=== PATIENT | female | born 1950 | race Caucasian/White ===

== ENCOUNTER 2017-10-23 21:34 | Emergency (ER) | payer OTHER ==
[2017-10-23 23:46] LABS: Absolute Lymphocytes (CBC) 3.4 K/uL (0.7-4.9); Absolute Monocytes 0.5 K/uL (0.1-1.3); Absolute Neutrophil 4.2 K/uL (1.8-8.0); Basophils % 0.7 % (0-1.3); Eosinophils % 3.6 % (0-4.4); Hematocrit 41.5 % (36.0-45.0); MCH 29.5 pg (27.0-35.0); MCV 89.5 fL (80-100); MPV 8.7 fL (7.6-11.3); Monocytes % 6.1 % (3.3-12.3); RBC Red Blood Cell Count 4.63 M/uL (3.86-4.86)
[2017-10-23] MEDS ORDERED: KETOROLAC 30 MG/ML INJ ONE (23:51)
--- NOTE | 2017-10-24 02:17 | EDPHYS ---
Physician Documentation [facility] Name: Leonela Schofield Age: 66 yrs Sex: Female : 1950 Arrival Date: 10/23/2017 Time: 21:36 Bed 16 Private MD: Dylan Quintero E ED Physician Mahesh Scruggs HPI: 10/23 23:56 This 66 yrs old Female presents to ER via Ambulatory with complaints of ps1 Shortness Of Breath, Blood Pressure Problem, chest heaviness. 23:56 patient states that she had high blood pressure and took an enalapril because she had a ps1 headache. She took her BP and it was elevated in which she generally does not have elevated BP since loosing a bunch of weight. She then took another when her BP was still elevated and rechecked and said that she bottomed out and BP was 60's systolic. She is 150's in the ED. Additionally states that she had intermittent chest tightness, no pressure and additionally has urinary frequncy. . Historical: - Allergies: 21:44 Tigan; aj - Home Meds: 21:44 cyclobenzaprine 10 mg Oral tab [Active]; hydrocodone-acetaminophen 7.5-500 mg oral tab aj [Active]; levothyroxine 150 mcg tab [Active]; Zoloft Oral [Active]; gabapentin oral oral [Active]; - PMHx: 21:44 Chronic pain; Hypothyroidism; Rheumatoid Arthritis; aj - PSHx: 21:44 None; aj - Immunization history:: Adult Immunizations up to date. - Social history:: Smoking status: Patient/guardian denies using tobacco. - Ebola Screening: : Patient negative for fever greater than or equal to 101.5 degrees Fahrenheit, and additional compatible Ebola Virus Disease symptoms Patient denies exposure to infectious person Patient denies travel to an Ebola-affected area in the 21 days before illness onset No symptoms or risks identified at this time. ROS: 23:56 Constitutional: Negative for fever, chills, and weight loss, Eyes: Negative for injury, ps1 pain, redness, and discharge, Cardiovascular: Negative for chest pain, palpitations, and edema. 23:56 Abdomen/GI: Negative for abdominal pain, nausea, vomiting, diarrhea, and constipation, MS/Extremity: Negative for injury and deformity, Skin: Negative for injury, rash, and discoloration, Neuro: Negative for headache, weakness, numbness, tingling, and seizure. 23:56 Respiratory: Positive for shortness of breath. 23:56 : Positive for urinary frequency. Exam: 23:56 Constitutional: This is a well developed, well nourished patient who is awake, alert, ps1 and in no acute distress. Head/Face: Normocephalic, atraumatic. Eyes: Pupils equal round and reactive to light, extra-ocular motions intact. Lids and lashes normal. Conjunctiva and sclera are non-icteric and not injected. Chest/axilla: Normal chest wall appearance and motion. Nontender with no deformity. No lesions are appreciated. Cardiovascular: Regular rate and rhythm. No gallops, murmurs, or rubs. Normal PMI, no JVD. No pulse deficits. Respiratory: Lungs have equal breath sounds bilaterally, clear to auscultation and percussion. No rales, rhonchi or wheezes noted. No increased work of breathing, no retractions or nasal flaring. Abdomen/GI: Soft, non-tender, with normal bowel sounds. No distension or tympany. No guarding or rebound. No evidence of tenderness throughout. Skin: Warm, dry with normal turgor. Normal color with no rashes, no lesions, and no evidence of cellulitis. MS/ Extremity: Pulses equal, no cyanosis. Neurovascular intact. Full, normal range of motion. Neuro: Awake and alert, GCS 15, oriented to person, place, time, and situation. Cranial nerves II-XII grossly intact. Sensory grossly intact. Psych: Awake, alert, with orientation to person, place and time. Behavior, mood, and affect are within normal limits. Vital Signs: 21:44 BP 132 / 63; Pulse 74; Resp 16; Temp 97.7; Pulse Ox 99% on R/A; Weight 87.54 kg; Height aj 5 ft. 8 in. (172.72 cm); 23:09 BP 153 / 75; Pulse 60; Resp 18; Pulse Ox 98% on R/A; tl2 10/24 00:21 BP 123 / 61; Pulse 57; Resp 19; Pulse Ox 98% on R/A; tl2 01:33 BP 117 / 60; Pulse 57; Resp 18; Pulse Ox 98% on R/A; tl2 10/23 21:44 Body Mass Index 29.35 (87.54 kg, 172.72 cm) aj MDM: 10/23 23:05 Patient medically screened. ps1 10/24 02:12 Data reviewed: vital signs, nurses notes, lab test result(s), EKG, radiologic studies. ps1 ED course: pt symptoms improved. On further conversation, patient states that she has been under a lot of stress lately with family issues. This may be due to anxiety. Will have patient follow up with Dr. Oneill tomorrow and have further diagnostic testing. . 10/23 23:14 Order name: BNP; Complete Time: 00:03 ps1 10/23 23:14 Order name: CBC with Diff; Complete Time: 23:50 ps1 10/23 23:14 Order name: Magnesium; Complete Time: 23:55 ps1 10/23 23:14 Order name: Troponin (emerg Dept Use Only); Complete Time: 00:03 ps1 10/23 23:14 Order name: D-Dimer; Complete Time: 23:50 ps1 10/24 01:54 Order name: Urine Dipstick--Ancillary (enter results); Complete Time: 02:38 rg2 10/23 23:14 Order name: XRAY Chest (1 view) ps1 10/23 23:14 Order name: EKG; Complete Time: 23:14 ps1 10/23 23:14 Order name: Cardiac monitoring; Complete Time: 23:20 ps1 10/23 23:14 Order name: EKG - Nurse/Tech; Complete Time: 23:20 ps1 10/23 23:14 Order name: IV Saline Lock; Complete Time: 23:20 ps1 10/23 23:14 Order name: Labs collected and sent; Complete Time: 23:20 ps1 10/23 23:14 Order name: O2 Per Protocol; Complete Time: 23:20 ps1 10/23 23:14 Order name: O2 Sat Monitoring; Complete Time: 23:20 ps1 10/23 23:14 Order name: Urine Dipstick-Ancillary (obtain specimen); Complete Time: 01:01 ps1 Administered Medications: 10/23 23:53 Drug: TORadol 30 mg Route: IVP; Site: right antecubital; tl2 10/24 00:30 Follow up: Response: No adverse reaction; Pain is decreased tl2 Disposition: 10/24/17 02:17 Discharged to Home. Impression: Hypertension, chest tightness, anxiety. - Condition is Stable. - Discharge Instructions: Nonspecific Chest Pain, [id number], Generalized Anxiety Disorder. - Medication Reconciliation Form, Thank You Letter, Antibiotic Education, Prescription Opioid Use form. - Follow up: Dylan Quintero MD; When: As needed; Reason: Recheck today's complaints, Continuance of care, Re-evaluation by your physician. Follow up: Maddison Oneill MD; When: Tomorrow; Reason: Further diagnostic work-up, Recheck today's complaints, Continuance of care, Re-evaluation by your physician. - Problem is an ongoing problem. - Symptoms have improved. Signatures: Dispatcher [employer] EDMS Justina Quan RN RN aj Luz Flanagan RN RN tl2 Mahesh Scruggs MD MD ps1 Corrections: (The following items were deleted from the chart) 02:40 02:17 10/24/2017 02:17 Discharged to Home. Impression: Hypertension; chest tightness; tl2 anxiety. Condition is Stable. Forms are Medication Reconciliation Form, Thank You Letter, Antibiotic Education, Prescription Opioid Use. Follow up: Dylan Quintero; When: As needed; Reason: Recheck today's complaints, Continuance of care, Re-evaluation by your physician. Follow up: Maddison Oneill; When: Tomorrow; Reason: Further diagnostic work-up, Recheck today's complaints, Continuance of care, Re-evaluation by your physician. Problem is an ongoing problem. Symptoms have improved. ps1
--- NOTE | 2017-10-24 02:17 | ER ---
Nurse's Notes [facility] Name: Leonela Schofield Age: 66 yrs Sex: Female : 1950 Arrival Date: 10/23/2017 Time: 21:36 Bed 16 Private MD: Dylan Quintero E Diagnosis: Hypertension;chest tightness;anxiety Presentation: 10/23 21:42 Presenting complaint: Patient states: SOB, urinary urgency and pressure, elevated blood aj pressure this morning. Transition of care: patient was not received from another setting of care. Onset of symptoms was October 23, 2017. Risk Assessment: Do you want to hurt yourself or someone else? Patient reports no desire to harm self or others. Care prior to arrival: None. 21:42 Method Of Arrival: Ambulatory aj 21:42 Acuity: MANUEL 3 aj 23:11 Initial Sepsis Screen: Does the patient meet any 2 criteria? No. Patient's initial tl2 sepsis screen is negative. Does the patient have a suspected source of infection? No. Patient's initial sepsis screen is negative. Triage Assessment: 21:44 General: Appears in no apparent distress. comfortable, Behavior is calm, cooperative, aj appropriate for age. Pain: Complains of pain in face. Neuro: Level of Consciousness is awake, alert, obeys commands, Oriented to person, place, time, situation, Appropriate for age Reports headache. Respiratory: Reports shortness of breath Airway is patent Respiratory effort is even, unlabored, Respiratory pattern is regular, symmetrical, Onset: The symptoms/episode began/occurred today, the patient has mild shortness of breath. : Reports urgency. Derm: Skin is intact, is healthy with good turgor, Skin is pink, warm \T\ dry. normal. Historical: - Allergies: 21:44 Tigan; aj - Home Meds: 21:44 cyclobenzaprine 10 mg Oral tab [Active]; hydrocodone-acetaminophen 7.5-500 mg oral tab aj [Active]; levothyroxine 150 mcg tab [Active]; Zoloft Oral [Active]; gabapentin oral oral [Active]; - PMHx: 21:44 Chronic pain; Hypothyroidism; Rheumatoid Arthritis; aj - PSHx: 21:44 None; aj - Immunization history:: Adult Immunizations up to date. - Social history:: Smoking status: Patient/guardian denies using tobacco. - Ebola Screening: : Patient negative for fever greater than or equal to 101.5 degrees Fahrenheit, and additional compatible Ebola Virus Disease symptoms Patient denies exposure to infectious person Patient denies travel to an Ebola-affected area in the 21 days before illness onset No symptoms or risks identified at this time. Screenin:09 Abuse screen: Denies threats or abuse. Nutritional screening: No deficits noted. tl2 Tuberculosis screening: No symptoms or risk factors identified. Fall Risk Gait- Impaired (20 pts.). Assessment: 23:09 General: Appears in no apparent distress. uncomfortable, Behavior is calm, cooperative, tl2 appropriate for age. Pain: Complains of pain in chest Pain does not radiate. Quality of pain is described as pressure. Neuro: Level of Consciousness is awake, alert, obeys commands, Oriented to person, place, time, situation. Cardiovascular: Rhythm is sinus bradycardia. Respiratory: Reports shortness of breath Airway is patent Respiratory effort is even, unlabored, Respiratory pattern is regular, symmetrical, Breath sounds are clear bilaterally. GI: No signs and/or symptoms were reported involving the gastrointestinal system. : No signs and/or symptoms were reported regarding the genitourinary system. Derm: Skin is pink, warm \T\ dry. 10/24 00:21 Reassessment: Patient appears in no apparent distress at this time. Patient and/or tl2 family updated on plan of care and expected duration. Pain level reassessed. Patient is alert, oriented x 3, equal unlabored respirations, skin warm/dry/pink. 01:30 Reassessment: Patient appears in no apparent distress at this time. Patient and/or tl2 family updated on plan of care and expected duration. Pain level reassessed. Patient is alert, oriented x 3, equal unlabored respirations, skin warm/dry/pink. 02:38 Reassessment: Patient appears in no apparent distress at this time. Patient and/or tl2 family updated on plan of care and expected duration. Pain level reassessed. Patient is alert, oriented x 3, equal unlabored respirations, skin warm/dry/pink. Pt verbalized understanding of discharge instructions, need for follow up. Vital Signs: 10/23 21:44 BP 132 / 63; Pulse 74; Resp 16; Temp 97.7; Pulse Ox 99% on R/A; Weight 87.54 kg; Height aj 5 ft. 8 in. (172.72 cm); 23:09 BP 153 / 75; Pulse 60; Resp 18; Pulse Ox 98% on R/A; tl2 10/24 00:21 BP 123 / 61; Pulse 57; Resp 19; Pulse Ox 98% on R/A; tl2 01:33 BP 117 / 60; Pulse 57; Resp 18; Pulse Ox 98% on R/A; tl2 10/23 21:44 Body Mass Index 29.35 (87.54 kg, 172.72 cm) aj ED Course: 10/23 21:36 Patient arrived in ED. am2 21:37 Dylan Quintero MD is Private Physician. am2 21:43 Triage completed. aj 21:44 Arm band placed on left wrist. Patient placed in waiting room, Patient notified of wait aj time. 22:59 Mahesh Scruggs MD is Attending Physician. ps1 23:09 Luz Flanagan, MARTHA is Primary Nurse. tl2 23:09 Patient has correct armband on for positive identification. Placed in gown. Bed in low tl2 position. Call light in reach. Side rails up X 1. Adult w/ patient. 23:09 Inserted saline lock: 20 gauge in right antecubital area, using aseptic technique. tl2 Blood collected. 23:41 X-ray completed. Portable x-ray completed in exam room. Patient tolerated procedure kw well. 23:44 XRAY Chest (1 view) In Process Unspecified. EDMS 10/24 02:16 Dylan Quintero MD is Referral Physician. ps1 02:16 Maddison Oneill MD is Referral Physician. ps1 02:38 No provider procedures requiring assistance completed. IV discontinued, intact, tl2 bleeding controlled, No redness/swelling at site. Pressure dressing applied. Administered Medications: 10/23 23:53 Drug: TORadol 30 mg Route: IVP; Site: right antecubital; tl2 10/24 00:30 Follow up: Response: No adverse reaction; Pain is decreased tl2 Outcome: 02:17 Discharge ordered by . ps1 02:38 Discharged to home ambulatory, with family. tl2 02:38 Condition: stable 02:38 Discharge instructions given to patient, Instructed on discharge instructions, follow up and referral plans. Demonstrated understanding of instructions, follow-up care. 02:40 Patient left the ED. tl2 Signatures: Dispatcher [employer] Justina Rascon RN RN aj Whitley, Kimberlee kw Knox, Taylor, RN RN tl2 Justina Villalba am2 Mahesh Scruggs MD MD ps1
[2017-10-24 02:38] LABS: Urine Blood NEGATIVE (NEG); Urine Glucose NEGATIVE (NEG); Urine Protein NEGATIVE (NEG); Urine Specific Gravity <1.005 (1.005-1.030); Urine pH 5.5 (5.0-7.0)
--- NOTE | 2017-10-24 07:39 | EKG ---
Test Date: 2017-10-23 Test Time: 23:20:48 Finished Stock Inspector: THERESA MEASUREMENT RESULTS: Intervals: Rate: 54 NH: 172 QRSD: 108 QT: 450 QTc: 426 [place]: P: 67 NH: 172 QRS: -4 T: 36 INTERPRETIVE STATEMENTS: Sinus bradycardia Otherwise normal ECG Compared to ECG 01/15/2002 16:11:00 Sinus rhythm no longer present T-wave abnormality no longer present Prolonged QT interval no longer present Electronically Signed On 10-24-17 07:38:06 CDT by Donn Fritz
--- NOTE | 2017-10-24 07:48 | RAD REPORT ---
EXAM DESCRIPTION: [facility] Single View10/23/2017 11:44 pm CLINICAL HISTORY: sob COMPARISON: none FINDINGS: The lungs appear clear of acute infiltrate. The heart is normal size IMPRESSION: No acute abnormalities displayed
== END 2017-10-24 02:40 | disposition home or self-care (01) ==
LOC: ER 21:34
DX: I10 Essential (primary) hypertension (principal); R07.89 Other chest pain; F41.9 Anxiety disorder, unspecified; E03.9 Hypothyroidism, unspecified; M06.9 Rheumatoid arthritis, unspecified
CPT/HCPCS: 36415; 71045; 81003; 83735; 83880; 84484; 85025; 85379; 93005; 96374; 99284

== ENCOUNTER 2022-09-23 15:34 | Inpatient (IN) | payer OTHER ==
[2022-09-23] MEDS ORDERED: ACETAMINOPHEN 500 MG TAB PO PRN (16:11)
[2022-09-23] MEDS ORDERED: ONDANSETRON 4 MG/2 ML VIAL IV PRN (16:11)
[2022-09-23] MEDS ORDERED: Levofloxacin 750mg IV 750 MG/150 ML BAG IV SCH (17:00)
[2022-09-23 17:17] VITALS: BMI 30.9
--- NOTE | 2022-09-23 17:24 | RAD REPORT ---
EXAM DESCRIPTION: CT - Chest For Pe Angio - 09/23/2022 4:48 pm CLINICAL HISTORY: sob COMPARISON: Chest Pa And Lat (2 Views) dated 08/23/2018 TECHNIQUE: Thin axial CT images of the chest were obtained following administration of 95 mL Isovue 370 IV contrast. Multiplanar reconstructions, and maximum intensity projection reconstructions were g enerated and reviewed. Exam utilizes a protocol for optimal evaluation of pulmonary arterial tree. All CT scans are performed using dose optimization technique as appropriate and may include automated exposure control or mA/KV adjustment according to patient size. FINDINGS: Pulmonary arteries are normal. No emboli or other suspicious finding. No acute or signific ant aorta findings. No suspicious mass in the lung parenchyma. Segmental left medial lower lobe airspace opacities with s ome volume loss, most suggestive of atelectasis. No pleural thickening or pleural effusion. No pneumo thorax. No abnormal mediastinal or hilar masses or lymphadenopathy seen. No chest wall mass or abnormal axill iary lymphadenopathy. Small hiatal hernia. Central intrahepatic biliary ductal dilation, could be related to post cholecystectomy status. IMPRESSION: No evidence of acute central pulmonary emboli. The medial left lower lobe airspace opacity, suggestive of atelectasis. Early or resolving pneumonia is possible. .
[2022-09-23] MEDS: METHYLPREDNISOLONE 125 MG INJ IV SCH ×2 (17:58→23:59)
[2022-09-23] MEDS: ALBUTEROL 2.5 MG/3 ML NEB SOL NEB SCH (19:40)
[2022-09-23] MEDS: IPRATROPIUM BROM 0.5MG/2.5ML NEB SCH (20:00)
[2022-09-24] MEDS ORDERED: CYCLOBENZAPRINE 10 MG TAB PO PRN (00:12)
[2022-09-24] MEDS ORDERED: GABAPENTIN 300 MG CAP PO PRN (00:12)
[2022-09-24] MEDS ORDERED: TRAMADOL HCL 50 MG TAB PO PRN (00:12)
[2022-09-24] MEDS: ALBUTEROL 2.5 MG/3 ML NEB SOL NEB SCH ×3 (01:45→15:09)
[2022-09-24] MEDS: IPRATROPIUM BROM 0.5MG/2.5ML NEB SCH ×4 (02:00→19:25)
[2022-09-24 03:27] LABS: Absolute Lymphocytes (CBC) 0.7 K/uL (0.7-4.9); Hematocrit 35.3 % (36.0-45.0); Lymphocytes % 9.8 % (15.3-44.8); MCV 87.4 fL (80-100); MPV 8.2 fL (7.6-11.3); RBC Red Blood Cell Count 4.04 M/uL (3.86-4.86)
[2022-09-24 03:48] LABS: Albumin 3.1 g/dL (3.4-5.0); Bilirubin Total 0.2 mg/dL (0.2-1.0); Magnesium 2.2 mg/dL (1.6-2.4); Potassium 2.7 mEq/L (3.5-5.1); Protein, Total 6.8 g/dL (6.4-8.2); Troponin High Sensitivity 8.1 pg/mL (<58.9)
[2022-09-24 04:46] LABS: Blood Morphology Comment NOT SEEN (NOT SEEN); Platelet Estimate ADEQ
[2022-09-24] MEDS ORDERED: POTASSIUM 25 MEQ EFFERV TAB PO ONE (05:39)
[2022-09-24] MEDS: METHYLPREDNISOLONE 125 MG INJ IV SCH (05:52)
[2022-09-24] MEDS ORDERED: NA CHLORIDE 0.9% 250 ML ONE (05:55)
--- NOTE | 2022-09-24 05:59 | P.HP ---
Certification for Inpatient Patient admitted to: Inpatient With expected LOS: >2 Midnights Patient will require the following post-hospital care: None Practitioner: I am a practitioner with admitting privileges, knowledge of patient current condition, hospital course, and medical plan of care. Services: Services provided to patient in accordance with Admission requirements found in Title 42 Section 412.3 of the Code of Federal Regulations Patient History Date of Service: 09/23/22 Reason for admission: Shortness of breath History of Present Illness: Patient is a 74-year-old female who comes in from the local stand-alone ER with complaints of shortness of breath. She has some vague chest discomfort as well. Concerned she may have a pulmonary embolism so she was sent to the emergency room for further evaluation. She follows up with Dr. Diez pulmonary in [place]. She states that she was told she has dyspnea but she does not know the etiology.She had a chest x-ray with no significant abnormality. We excepted her from the office emergency room to do an CAT scan. CT is unremarkable. Patient will be admitted for further treatment and work-up of her shortness of breath. We will get pulmonary Dr. Villafuerte to see the patient as well. Allergies trimethobenzamide [From Tigan] Allergy (Verified 09/23/22 21:16) Anaphylaxis Home Medications: Albuterol Sulfate [Albuterol Sulfate 0.083% Neb Soln] 1 dose IN PRN PRN 09/23/22 Amlodipine [Norvasc*] 1 tab PO DAILY 09/23/22 Cyclobenzaprine [Flexeril*] 5 tab PO PRN PRN 09/23/22 Furosemide [Lasix*] 1 tab PO DAILY 09/23/22 Gabapentin 1 tab PO BEDTIME 09/23/22 Hydrocodone 10/APAP 325 [[place] 10/325*] 1 tab PO Q6HR PRN 09/23/22 Levothyroxine Sodium [Levothyroxine] 1 tab PO DAILY 09/23/22 Montelukast [Singulair*] 1 tab PO BEDTIME 09/23/22 Tramadol HCl [Ultram] 1 tab PO BEDTIME 09/23/22 Venlafaxine HCl [Effexor] 150 mg PO DAILY 09/23/22 - Past Medical/Surgical History Has patient received pneumonia vaccine in the past: Yes -: Dyspnea Past Surgical History: Patient denies surgical history - Family History Father Family History: Reviewed- Non-Contributory - Social History Smoking Status: Never smoker Alcohol use: No CD- Drugs: No Caffeine use: Yes Place of Residence: Home Review of Systems 10-point ROS is otherwise unremarkable Physical Examination - Vital Signs Temperature: 97.2 F Blood Pressure: 126/58 Pulse: 82 Respirations: 16 Pulse Ox (%): 92 - Physical Exam General: Alert, In no apparent distress, Oriented x3 HEENT: Atraumatic, PERRLA, Mucous membr. moist/pink, EOMI, Sclerae nonicteric Neck: Supple, 2+ carotid pulse no bruit, No LAD, Without JVD or thyroid abnormality Respiratory: Diminished, Expiratory wheezes Cardiovascular: Regular rate/rhythm, Normal S1 S2, No murmurs Gastrointestinal: Normal bowel sounds, Soft and benign, Non-distended, No tenderness Musculoskeletal: No clubbing, No swelling, No tenderness Integumentary: No rashes Neurological: Normal gait, Normal speech, Normal strength at 5/5 x4 extr, Normal tone, Sensation intact, Cranial nerves 3-12 intact, Normal affect Lymphatics: No axilla or inguinal lymphadenopathy - Studies Laboratory Data (last 24 hrs) 09/24/22 02:54: Sodium 135 L, Potassium 2.7 L, BUN 17, Creatinine 0.88, Glucose 166 H, Magnesium 2.2, Total Bilirubin 0.2, AST 17, ALT 19, Alkaline Phosphatase 70, Triglycerides 69, Cholesterol 145, HDL Cholesterol 76 H, Cholesterol/HDL Ratio 1.91 09/24/22 02:54: WBC 7.20, Hgb 11.8 L, Hct 35.3 L, Plt Count 145 L Assessment & Plan - Problems (Diagnosis) (1) Dyspnea Current Visit: Yes Status: Acute (2) COPD (chronic obstructive pulmonary disease) with acute bronchitis Current Visit: Yes Status: Acute - Plan -nebs, steroids, and antibiotics -O2 per protocol. -outpatient spirometry or pulmonary function testing -repeat chest x-ray -pulmonary consultation Discharge Plan: Home Plan to discharge in: Greater than 2 days - Advance Directives Does patient have a Living Will: No Does patient have a Durable POA for Healthcare: No - Code Status/Comfort Care Code Status Assessed: Yes Code Status: Full Code Critical Care: No Time Spent Managing PTS Care (In Minutes): 45
[2022-09-24] MEDS ORDERED: KCL 20 MEQ/100 mL IVPB 20 MEQ/100 ML BAG IV SCH (06:00)
[2022-09-24] MEDS: AMLODIPINE 5 MG TAB PO SCH (09:03)
[2022-09-24] MEDS: LEVOTHYROXINE SOD 0.075 MG TAB PO SCH (09:03)
[2022-09-24] MEDS: ENOXAPARIN 40 MG/0.4 ML SQ SCH (09:04)
[2022-09-24] MEDS: HYDROCODONE/APAP 10/325 TAB PO PRN ×2 (09:08→18:13)
--- NOTE | 2022-09-24 10:20 | P.CNS ---
Date of Consult: 09/24/22 Reason for Consult: Shortness of breath Chief Complaint: Shortness of breath History of Present Illness: Patient is 71 years of age with history of chronic dyspnea she was seen by investment director Dr. 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 with wheezing denies any fever or chills she uses albuterol at home only Allergies trimethobenzamide [From Tigan] Allergy (Verified 09/23/22 21:16) Anaphylaxis Home Medications: Albuterol Sulfate [Albuterol Sulfate 0.083% Neb Soln] 1 dose IN PRN PRN 09/23/22 Amlodipine [Norvasc*] 1 tab PO DAILY 09/23/22 Cyclobenzaprine [Flexeril*] 5 tab PO PRN PRN 09/23/22 Furosemide [Lasix*] 1 tab PO DAILY 09/23/22 Gabapentin 1 tab PO BEDTIME 09/23/22 Hydrocodone 10/APAP 325 [[place] 10/325*] 1 tab PO Q6HR PRN 09/23/22 Levothyroxine Sodium [Levothyroxine] 1 tab PO DAILY 09/23/22 Montelukast [Singulair*] 1 tab PO BEDTIME 09/23/22 Tramadol HCl [Ultram] 1 tab PO BEDTIME 09/23/22 Venlafaxine HCl [Effexor] 150 mg PO DAILY 09/23/22 - Past Medical/Surgical History -: Dyspnea -: Hypertension -: Chronic pain seeing a pain specialist - Family History Father Family History: Reviewed- Non-Contributory - Social History Alcohol use: No CD- Drugs: No Caffeine use: Yes Place of Residence: Home Review of Systems 10-point ROS is otherwise unremarkable Physical Examination Temp Pulse Resp BP Pulse Ox 97.5 F 81 18 125/65 97 09/24/22 08:00 09/24/22 08:00 09/24/22 08:00 09/24/22 08:00 09/24/22 08:00 General: Alert, Oriented x3 HEENT: Atraumatic Neck: Supple Respiratory: Clear to auscultation bilaterally Cardiovascular: No edema, Regular rate/rhythm, Normal S1 S2 Gastrointestinal: Normal bowel sounds, Soft and benign Laboratory Data (last 24 hrs) 09/24/22 02:54: Sodium 135 L, Potassium 2.7 L, BUN 17, Creatinine 0.88, Glucose 166 H, Magnesium 2.2, Total Bilirubin 0.2, AST 17, ALT 19, Alkaline Phosphatase 70, Triglycerides 69, Cholesterol 145, HDL Cholesterol 76 H, Cholesterol/HDL Ratio 1.91 09/24/22 02:54: WBC 7.20, Hgb 11.8 L, Hct 35.3 L, Plt Count 145 L - Problems (1) Dyspnea Current Visit: Yes Status: Acute Plan: Patient is 71 years of age admitted with acute on chronic dyspnea she has had been short of breath for the past 3 to 4 years was evaluated by investment director with a diagnosis of dyspnea suspect that she may have underlying asthma her aunt is also has asthma patient is never smoked uses albuterol at home I recommend adding p.o. prednisone inhaled steroid CT scan shows left basilar atelectasis vital signs are stable patient is hypokalemic suspect is from the Lasix vital signs stable oxygenation satisfactory discharge home on prednisone 10 mg twice a day for a week in addition to Dulera continues to use albuterol as needed follow-up with me in 2 weeks Qualifiers: Dyspnea type: dyspnea on exertion Qualified Code(s): R06.09 - Other forms of dyspnea
[2022-09-24] MEDS: DULERA 200/5 (MOMETASONE/FORMOTEROL) INHALER IH SCH ×2 (11:00→21:00)
[2022-09-24] MEDS: VENLAFAXINE HCL XR 75 MG CAP PO SCH (13:45)
[2022-09-24] MEDS: LEVALBUTEROL 1.25 MG/3 ML NEB NEB SCH (19:25)
[2022-09-24] MEDS ORDERED: MONTELUKAST 5 MG CHEWABLE TAB PO SCH (21:00)
[2022-09-24] MEDS: GABAPENTIN 300 MG CAP PO SCH (21:21)
[2022-09-24] MEDS: predniSONE 20 MG TAB PO SCH (21:22)
[2022-09-24] MEDS: MONTELUKAST 10 MG TAB PO SCH (21:22)
[2022-09-25] MEDS: LEVALBUTEROL 1.25 MG/3 ML NEB NEB SCH ×4 (01:15→19:25)
[2022-09-25] MEDS: IPRATROPIUM BROM 0.5MG/2.5ML NEB SCH ×4 (02:00→19:25)
[2022-09-25] MEDS: AMOX/K CLAV 875 MG TAB PO SCH ×2 (08:57→20:22)
[2022-09-25] MEDS: AMLODIPINE 5 MG TAB PO SCH (08:57)
[2022-09-25] MEDS: VENLAFAXINE HCL XR 75 MG CAP PO SCH (08:57)
[2022-09-25] MEDS: ENOXAPARIN 40 MG/0.4 ML SQ SCH (08:57)
[2022-09-25] MEDS: BENZONATATE 100 MG CAP PO PRN (08:57)
[2022-09-25] MEDS: LEVOTHYROXINE SOD 0.075 MG TAB PO SCH (08:57)
[2022-09-25] MEDS: DULERA 200/5 (MOMETASONE/FORMOTEROL) INHALER IH SCH ×2 (08:58→20:22)
[2022-09-25] MEDS: predniSONE 20 MG TAB PO SCH ×2 (08:58→20:22)
[2022-09-25] MEDS: GABAPENTIN 300 MG CAP PO SCH ×2 (08:58→20:22)
[2022-09-25] MEDS: HYDROCODONE/APAP 10/325 TAB PO PRN ×3 (09:02→22:35)
--- NOTE | 2022-09-25 09:06 | RAD REPORT ---
EXAM DESCRIPTION: US - Extrem Venous W Compress Willy - 09/25/2022 8:59 am CLINICAL HISTORY: elevated ddimer at OSH Bilateral leg edema and swelling. COMPARISON: Extremity Venous Uni Ltd dated 12/03/2016 TECHNIQUE: Real-time sonographic interrogation of the left and right lower extremity deep venous sys tems was performed. FINDINGS: Normal compressibility, flow augmentation, phasic flow and spontaneous flow is identified in both the left and right lower extremity deep venous systems. IMPRESSION: No sonographic evidence of left or right lower extremity deep venous thrombosis.
--- NOTE | 2022-09-25 10:20 | RAD REPORT ---
EXAM DESCRIPTION: RAD - Chest Single View - 09/25/2022 10:12 am CLINICAL HISTORY: follow-up Chest pain. COMPARISON: Chest Pa And Lat (2 Views) dated 08/23/2018; Chest Single View dated 10/23/2017; Chest For P e Angio dated 09/23/2022 FINDINGS: Portable technique limits examination quality. The lungs are emphysematous but grossly clear. The heart is normal in size. No displaced fractures. IMPRESSION: COPD without acute process seen.
--- NOTE | 2022-09-25 11:52 | P.PN ---
Subjective Date of Service: 09/25/22 Chief Complaint: Shortness of breath Patient was improving complaining of more cough and congestion short of breath Review of Systems General: Weakness Respiratory: Cough, Shortness of Breath Physical Examination - Vital Signs Temperature: 97.4 F Blood Pressure: 135/64 Pulse: 69 Respirations: 95 Pulse Ox (%): 80 - Physical Exam General: Alert, Oriented x3 Respiratory: Expiratory wheezes Cardiovascular: No edema, Regular rate/rhythm Assessment And Plan - Current Problems (Diagnosis) (1) Dyspnea Current Visit: Yes Status: Acute Plan: Presumed asthma exacerbation patient was positive for strep throat Augmentin has been added formally was on levofloxacin have also added Zithromax for her COPD/asthma presumed exacerbation labs reviewed procalcitonin level is negative possible discharge a.m. Qualifiers: Dyspnea type: dyspnea on exertion Qualified Code(s): R06.09 - Other forms of dyspnea
[2022-09-25] MEDS: AZITHROMYCIN 250 MG TAB PO SCH (12:03)
--- NOTE | 2022-09-25 16:02 | P.PN ---
Subjective Date of Service: 09/25/22 Chief Complaint: Shortness of breath No acute events overnight. Her shortness of breath and sore throat are persistent. She feels like her symptoms are unchanged compared to yesterday. She denies any chest pain or palpitations. Review of Systems 10-point ROS is otherwise unremarkable ENT: Throat Pain Respiratory: Cough, Shortness of Breath Physical Examination - Vital Signs Temperature: 97.9 F Blood Pressure: 135/67 Pulse: 85 Respirations: 18 Pulse Ox (%): 93 - Physical Exam General: Alert, In no apparent distress, Oriented x3 HEENT: Atraumatic, Mucous membr. moist/pink, Other (Mildmoderate posterior oropharyngeal erythema), Sclerae nonicteric Neck: JVD not distended Respiratory: Diminished, Expiratory wheezes (end-expiratory) Cardiovascular: No edema, Regular rate/rhythm, Normal S1 S2, No gallops, No rubs, No murmurs Gastrointestinal: Normal bowel sounds, Soft and benign, Non-distended, No tenderness, No rebound, No guarding Musculoskeletal: No clubbing Integumentary: No rashes Neurological: Normal speech, Normal affect Assessment And Plan - Plan # Acute Chronic Obstructive Pulmonary Disease Exacerbation - Evaluation thus far: - Physical exam = end expiratory wheezing throughout - Chest x-ray = "COPD without acute process seen." - Management plan: - Pulmonology consulted and spoke with Dr. Mcadams - recommendations appreciated - Bronchodilators and steroids per Pulm - Ordered PRN benzonatate, guaifenesin - Continue home montelukast - Consulted Respiratory Therapy - Supplemental oxygen to maintain SpO2 > 92% - Assess inhaler technique one improved from COPD exacerbation - Encouraged incentive spirometry # Group A Streptococcus Pharyngitis - Strep test was positive at [facility] prior to transfer - Started on amoxicillin-clavulanate # Elevated D-Dimer - D-Dimer = 936 (at [facility] prior to transfer) - CT chest angiogram = "no evidence of acute central pulmonary emboli. The medial left lower lobe airspace opacity, suggestive of atelectasis. Early or resolving pneumonia is possible." - Bilateral lower extremity Doppler = "no sonographic evidence of left or right lower extremity deep venous thrombosis." # Hypertension - Continue home amlodipine # Hypothyroidism - Continue home levothyroxine # Depressive Disorder - Continue home venlafaxine Myles Bryant M.D.
[2022-09-25] MEDS ORDERED: guaiFENesin 100 MG/5 ML UCUP PO PRN (16:29)
[2022-09-25] MEDS: MONTELUKAST 10 MG TAB PO SCH (22:12)
[2022-09-26] MEDS: IPRATROPIUM BROM 0.5MG/2.5ML NEB SCH ×2 (01:25→07:43)
[2022-09-26] MEDS: LEVALBUTEROL 1.25 MG/3 ML NEB NEB SCH ×2 (01:25→07:43)
[2022-09-26 04:05] LABS: Potassium 4.2 mEq/L (3.5-5.1)
[2022-09-26 08:11] VITALS: O2SAT 100
--- NOTE | 2022-09-26 08:18 | P.DS ---
Admission Date: 09/23/22 Discharge Date: 09/26/22 Disposition: ROUTINE DISCHARGE Discharge Condition: GOOD Reason for Admission: Shortness of breath Consultations: 1. Pulmonology Hospital Course: DIAGNOSES: # Acute Chronic Obstructive Pulmonary Disease Exacerbation # Group A Streptococcus Pharyngitis # Elevated D-Dimer # Hypertension # Hypothyroidism # Depressive Disorder HOSPITAL COURSE: Ms. Leonela Schofield is a pleasant 71 year old female with a past medical history significant for chronic obstructive pulmonary disease, hypertension, hypothyroidism, and depressive disorder who was admitted to the [facility] on 09/23/2022 for shortness of breath. She was admitted to the Medicine service. Upon further evaluation, she was found to have an acute COPD exacerbation. Her chest x-ray revealed, ""COPD without acute process seen." Review of her outside records from [facility] indicated that she had d-dimer of 936 and a positive Group A Strep test. Her CT chest angiogram revealed, ""no evidence of acute central pulmonary emboli. The medial left lower lobe airspace opacity, suggestive of atelectasis. Early or resolving pneumonia is possible." Her procalcitonin returned at less than 0.05, which suggests against bacterial pneumonia. Her bilateral lower extremity Doppler revealed, "no sonographic evidence of left or right lower extremity deep venous thrombosis." Pulmonology was consulted and she was evaluated by Dr. Mcadams. She was treated with bronchodilators, steroids, and antibiotics. Over the course of her hospitalization, her symptoms improved significantly. This morning, she stated that she felt significantly better and would like to be discharged home. On 09/26/2022, she was seen on morning rounds and deemed medically stable for discharge. She was discharged with instructions to schedule follow-up appointments with her PCP (Dr. Quintero) and with Pulmonology (Dr. Mcadams). She was provided prescriptions for amoxicillin-clavulanate, prednisone, albuterol, and benzonatate. She was given the opportunity to ask questions and reported no further questions. Furthermore, all questions were answered to the best of my ability. A copy of this discharge summary will be sent to the above providers to facilitate continuity of care. Today, I personally spent 25 minutes on her case, of which greater than 50% of the time was spent in patient education, counseling, and coordination of care as described above. - Physical Exam General: Alert, In no apparent distress, Oriented x3 HEENT: Atraumatic, Mucous membr. moist/pink, Other (Minimal posterior oropharyngeal erythema), Sclerae nonicteric Neck: JVD not distended Respiratory: Diminished, Clear to ausculation bilaterally, without wheezes, rhonchi, or rales Cardiovascular: No edema, Regular rate/rhythm, No murmurs Gastrointestinal: Normal bowel sounds, Soft, Non-distended, No tenderness Musculoskeletal: No clubbing Integumentary: No rashes Neurological: Normal speech, Normal affect Vital Signs/Physical Exam: Temp Pulse Resp BP Pulse Ox 97.0 F 71 18 131/61 96 09/26/22 04:00 09/26/22 04:00 09/26/22 04:00 09/26/22 04:00 09/26/22 04:00 Laboratory Data at Discharge: WBC 7.20 thou/uL (4.3-10.9) 09/24/22 02:54 Hgb 11.8 g/dL (12.0-15.0) L 09/24/22 02:54 Hct 35.3 % (36.0-45.0) L 09/24/22 02:54 Plt Count 145 thou/uL (152-406) L 09/24/22 02:54 Sodium 136 mEq/L (136-145) 09/26/22 03:17 Potassium 4.2 mEq/L (3.5-5.1) 09/26/22 03:17 BUN 22 mg/dL (7-18) H 09/26/22 03:17 Creatinine 0.71 mg/dL (0.55-1.02) 09/26/22 03:17 Glucose 167 mg/dL (74-106) H 09/26/22 03:17 Magnesium 2.2 mg/dL (1.6-2.4) 09/24/22 02:54 Total Bilirubin 0.2 mg/dL (0.2-1.0) 09/24/22 02:54 AST 17 U/L (15-37) 09/24/22 02:54 ALT 19 U/L (13-56) 09/24/22 02:54 Alkaline Phosphatase 70 U/L (45-117) 09/24/22 02:54 Triglycerides 69 mg/dL (<150) 09/24/22 02:54 Cholesterol 145 mg/dL (<200) 09/24/22 02:54 HDL Cholesterol 76 mg/dL (40-60) H 09/24/22 02:54 Cholesterol/HDL Ratio 1.91 09/24/22 02:54 Home Medications: Albuterol Sulfate [Albuterol Sulfate 0.083% Neb Soln] 1 dose IN PRN PRN 09/23/22 Amlodipine [Norvasc*] 1 tab PO DAILY 09/23/22 Cyclobenzaprine [Flexeril*] 5 tab PO PRN PRN 09/23/22 Furosemide [Lasix*] 1 tab PO DAILY 09/23/22 Gabapentin 1 tab PO BID 09/23/22 Hydrocodone 10/APAP 325 [[place] 10/325*] 1 tab PO Q6HR PRN 09/23/22 Levothyroxine Sodium [Levothyroxine] 1 tab PO DAILY 09/23/22 Tramadol HCl [Ultram] 1 tab PO BEDTIME 09/23/22 Meloxicam 15 mg PO DAILY 09/24/22 Montelukast Sodium [Singulair] 10 mg PO DAILY 09/24/22 Venlafaxine HCl *Xr* [Effexor XR] 150 mg PO DAILY 09/24/22 Albuterol Sulfate [Albuterol Sulfate Hfa] 2 puff IH Q6H PRN #1 inhaler 09/26/22 Amox/Clavulanate [Augmentin 875-125 Tab*] 875 mg PO BID 7 Days #14 tab 09/26/22 Benzonatate [Tessalon Perle*] 100 mg PO TID PRN 7 Days #20 cap 09/26/22 predniSONE [Prednisone*] 20 mg PO BID 5 Days #10 tab 09/26/22 New Medications: Albuterol Sulfate [Albuterol Sulfate Hfa] 2 puff IH Q6H PRN #1 inhaler PRN Reason: Shortness Of Breath Amox/Clavulanate [Augmentin 875-125 Tab*] 875 mg PO BID 7 Days #14 tab predniSONE [Prednisone*] 20 mg PO BID 5 Days #10 tab Benzonatate [Tessalon Perle*] 100 mg PO TID PRN 7 Days #20 cap PRN Reason: Cough Physician Discharge Instructions: 1. Please call and schedule a follow-up appointment with your PCP (Dr. Quintero) in 3-5 days 2. Please call and schedule a follow-up appointment with Pulmonology (Dr. Mcadams) in 5-7 days Diet: AHA Activity: Ad jennifer Followup: Duglas Mcadams MD [ACTIVE - CAN ADMIT] - 1 Week Dylan Quintero MD [ACTIVE - CAN ADMIT] - 2-3 Days Time spent managing pt's care (in minutes): 25
[2022-09-26 08:45] VITALS: BP 123/64; TEMP 96.8
[2022-09-26] MEDS: DULERA 200/5 (MOMETASONE/FORMOTEROL) INHALER IH SCH (09:00)
[2022-09-26] MEDS: VENLAFAXINE HCL XR 75 MG CAP PO SCH (09:16)
[2022-09-26] MEDS: GABAPENTIN 300 MG CAP PO SCH (09:16)
[2022-09-26] MEDS: LEVOTHYROXINE SOD 0.075 MG TAB PO SCH (09:16)
[2022-09-26] MEDS: AMLODIPINE 5 MG TAB PO SCH (09:16)
[2022-09-26] MEDS: AZITHROMYCIN 250 MG TAB PO SCH (09:16)
[2022-09-26] MEDS: predniSONE 20 MG TAB PO SCH (09:16)
[2022-09-26] MEDS: ENOXAPARIN 40 MG/0.4 ML SQ SCH (09:17)
[2022-09-26] MEDS: AMOX/K CLAV 875 MG TAB PO SCH (09:17)
[2022-09-26] MEDS: HYDROCODONE/APAP 10/325 TAB PO PRN (09:22)
[2022-09-26] MEDS: BENZONATATE 100 MG CAP PO PRN (09:45)
== END 2022-09-26 10:55 | disposition home or self-care (01) | DRG 190 ==
LOC: 2ND 15:43 → OBSVTOIN 15:43
PROVIDERS: ADMIT Hospitalist; ATTEND Internal Medicine
PROC: 5A09357 Assistance with Respiratory Ventilation, Less than 24 Consecutive Hours, Continuous Positive Airway Pressure (ICD-10-PCS; principal; 2022-09-23)
DX: J44.1 Chronic obstructive pulmonary disease with (acute) exacerbation (principal); J15.4 Pneumonia due to other streptococci; J44.0 Chronic obstructive pulmonary disease with (acute) lower respiratory infection; E03.9 Hypothyroidism, unspecified; F32.A Depression, unspecified; Z88.8 Allergy status to other drugs, medicaments and biological substances; Z79.52 Long term (current) use of systemic steroids; Z79.899 Other long term (current) drug therapy; Z79.890 Hormone replacement therapy
CPT/HCPCS: 36415; 71045; 71275; 80048; 80053; 80061; 83735; 83880; 84132; 84145; 84484; 85025; 93970; 94760; J1650; J2405; J2930; J3480; J3535; J7050; J7512; J7613; J7614; J7644; Q9967

== ENCOUNTER 2024-01-13 14:04 | Emergency (ER) | payer OTHER ==
--- OUTSIDE RECORDS SUMMARY | 2024-01-13 14:07 | XMS REPORT | Continuity of Care Document ---
Author Name Unknown Address [address] [place] [address] [facility] thconnect Address [address] [place] [address] Care Team Providers Care Welding Machine Setter Name Role Phone Dylan Quintero Primary Care Physician [phone] Michael Arias Attending Clinician [phone] AWA MUNGUIA Attending Clinician UnavailAWA Fields Attending Clinician UnavailJoo Guadalupe DO Attending Clinician [phone] GIORGIO JAMISON Attending Clinician Unavailable Giorgio Stovall Attending Clinician [phone] Doctor Unassigned, [place] Attending Clinician U navailable Radiology Attending Clinician Unavailable RADIOLOGY Attending Clinician Unavailable TIANA GUERRERO Attending Clinician Unavailable TIANA GUERRERO Attending Clinician Unavailable Pob, [facility] Lab Main Attending Clinician UnavailKatya Eubanks Attending Clinician Giovany Denney MD Attending Clinician [phone] GIOVANY DENNEY Attending Clinician Unavailable Awa Munguia MD Attending Clinician [phone] [facility], [facility] Heart Attending Clinician Unavailab le Class, [facility] Pre Op Attending Clinician Unabrandyn cooney 1, [facility] Attending Clinician Unavailable Weston ROA, Puneet Dow Attending Clinician [phone] Tiana Guerrero DO Attending Clinician [phone] [facility], [facility] Cardio Fac Attending Clinician Unavail able 1, Adc Cardio Fac Room Attending Clinician Unankechi ilable Payers Payer Name Policy Type Policy Number Effective Date Expirati on Date Source Problems Condition Name Condition Details Condition Category Status Onset Date Resolution Date Last Treatment Date Treating Clinician Comments Source Primary osteoarthr itis of left knee Primary osteoarthr itis of left knee Disease Active 2018-05 0-14 00:00: 00 Overview: Formattin g of this note might be different from the original. Added automatic ally from request for surgery [id number] [facility] Total knee replacemen t status Total knee replacemen t status Disease Active 02-10 00:00: 00 [facility] Primary osteoarthr itis of right knee Primary osteoarthr itis of right knee Disease Active 01-24 00:00: 00 Overview: Formattin g of this note might be different from the original. Added automatic ally from request for surgery [id number] [facility] Allergies, Adverse Reactions, Alerts Allergy Name Allergy Type Status Severity Reaction(s) Onset Date Inactive Date Treating Clinician Comments Source Codeine Propensi ty to adverse reaction s Active Nausea and/or Vomiting 01-29 00:00: 00 [facility] CODEINE DRUG INGREDI Active N/V 01-29 00:00: 00 [facility] Trimetho benzamid e Hcl Propensi ty to adverse reaction s Active Anaphylaxis 10-04 00:00: 00 [facility] TRIMETHO BENZAMID E HCL DRUG INGREDI Active Anaphylaxis 17 00:00: 00 [facility] Social History Social Habit Start Date Stop Date Quantity Comments Source History SDOH Alcohol Std Drinks [facility] History SDOH Alcohol Binge [facility] Exposure to SARS-CoV-2 (event) Not sure [facility] 2020-02-12 00:00:00 2020-02-12 00:00:00 Lifetime non-drinker (finding) [facility] Alcoholic beverage intake 2020-02-12 00:00:00 2020-02-12 00:00:00 Lifetime non-drinker (finding) [facility] History of Social function 2019-12-21 00:00:00 2019-12-21 00:00:00 [facility] History SDOH Alcohol Frequency 2019-01-29 00:00:00 2019-01-29 00:00:[address] [facility] Tobacco use and exposure 2018-10-04 00:00:00 2018-10-04 00:00:00 Smokeless tobacco non-user [facility] Sex assigned at 1950 00:00:00 1950 00:00:00 [facility] Smoking Status Start Date Stop Date Source Never smoked tobacco [facility] Medications Ordered Medication Name Filled Medication Name Start Date Stop Date Current Medication? Ordering Clinician Indication Dosage Frequency Signature (SIG) Comments Components Source meloxicam 7.5 mg tablet 924 00:00: 00 Yes [id number] 9102 7.5mg Take 1 tablet by mouth daily. [facility] DICLOFENAC 75 mg EC tablet -21 00:00: 00 Yes [id number] TAKE ONE (1) TABLET(S) BY MOUTH TWICE A DAY WITH FOOD. [facility] DICLOFENAC 75 mg EC tablet 3-16 00:00: 00 09-08 00:00 :00 No [id number] TAKE ONE (1) TABLET(S) BY MOUTH TWICE A DAY WITH MEALS. [facility] DICLOFENAC 75 mg EC tablet 12 00:00: 00 Yes [id number] TAKE ONE (1) TABLET(S) BY MOUTH TWICE A DAY WITH MEALS. [facility] diclofenac 75 mg EC tablet 1-15 00:00: 00 07-02 00:00 :00 No [id number] 75mg Take 1 tablet by mouth 2 (two) times daily with meals for 30 days. [facility] benzonatate 100 mg capsule 2018-05 00:00: 00 Yes TAKE ONE (1) CAPSULE(S) BY MOUTH THREE TIMES A DAY FOR 10 DAYS. [facility] albuterol (VENTOLIN HFA) 90 mcg/actuati on inhaler 2018-05 0 20:16: 49 Yes 2{puff} Inhale 2 Puffs every 6 (six) hours as needed for Wheezing or Shortness of Breath. [facility] fluticasone -umeclidin- vilanter (TRELEGY ELLIPTA) 100-62.5-25 mcg DsDv 2018-05 20:16: 49 Yes Inhale. [facility] levothyroxi ne 150 mcg tablet 2018-05 20:16: 49 Yes 150ug Take 150 mcg by mouth every morning. [facility] pregabalin 75 mg capsule 2018-05 20:16: 49 Yes 75mg Take 75 mg by mouth 3 (three) times daily. [facility] HYDROcodone -acetaminop hen 10-325 mg tablet 2018-05 20:16: 49 Yes 1{tbl} Take 1 tablet by mouth 4 (four) times daily. [facility] pregabalin 100 mg capsule 2018-05 20:16: 49 Yes 100mg Take 100 mg by mouth 3 (three) times daily. [facility] multivit,ir on,minerals /lutein (CENTRUM SILVER ULTRA WOMEN'S ORAL) 2018-05 20:16: 49 Yes 1{tbl} Take 1 tablet by mouth daily. [facility] Fish Oil-[place] 3-Vit C 284-850 mg/2.5 gram ElPk 2018-05 20:16: 49 Yes 1{capsu le} Take 1 capsule by mouth daily. [facility] multivit,ir on,minerals /lutein (CENTRUM SILVER ULTRA WOMEN'S ORAL) 2018-05 15:16: 49 Yes 1{tbl} Take 1 tablet by mouth daily. [facility] Fish Oil-[place] 3-Vit C 284-850 mg/2.5 gram ElPk 2018-05 15:16: 49 Yes 1{capsu le} Take 1 capsule by mouth daily. [facility] acetaminoph en-codeine (TYLENOL-CO DEINE #3) 300-30 mg tablet 2018-05 00:00: 00 Yes [id number] 05 2{tbl} Take 2 tablets by mouth every 4 (four) hours as needed for Pain (scale 4-6) or Pain (scale 7-10). [facility] acetaminoph en-codeine (TYLENOL-CO DEINE #3) 300-30 mg tablet 02-11 00:00: 00 Yes [id number] 05 2{tbl} Take 2 tablets by mouth every 4 (four) hours as needed for Pain (scale 4-6) or Pain (scale 7-10). [facility] ondansetron (ZOFRAN) 8 mg tablet 02-11 00:00: 00 Yes [id number] 05 8mg Take 1 tablet by mouth every 12 (twelve) hours. [facility] SERTraline 100 mg tablet 02-11 00:00: 00 Yes 100mg Take 100 mg by mouth daily. [facility] ceFAZolin in dextrose (iso-os) (ANCEF) 2 gram/100 mL Piggyback 2 g 02-03 05:00: 00 02-03 16:59 :00 No 2g [facility] oxyCODONE-a cetaminophe n (PERCOCET) 5-325 mg per tablet 2 tablet 02-03 05:00: 00 02-03 16:59 :00 No 2{tbl} [facility] HYDROcodone -acetaminop hen 7.5-325 mg per tablet 01-29 17:34: 53 Yes 1{tbl} Take 1 tablet by mouth every 6 (six) hours as needed for Pain. [facility] albuterol (VENTOLIN HFA) 90 mcg/actuati on inhaler 01-29 17:30: 39 Yes 2{puff} Inhale 2 Puffs every 6 (six) hours as needed for Wheezing or Shortness of Breath. [facility] fluticasone -umeclidin- vilanter (TRELEGY ELLIPTA) 100-62.5-25 mcg DsDv 01-29 17:30: 39 Yes Inhale. [facility] levothyroxi ne 150 mcg tablet 01-29 17:30: 39 Yes 150ug Take 150 mcg by mouth every morning. [facility] SERTraline 50 mg tablet 01-29 17:30: 39 Yes 50mg Take 50 mg by mouth daily. [facility] pregabalin 75 mg capsule 01-29 17:30: 39 Yes 75mg Take 75 mg by mouth 3 (three) times daily. [facility] iohexol (OMNIPAQUE 350 BULK-100 mL) injection 100 mL 01-15 14:45: 00 01-15 15:05 :00 No 100mL 100 mL, Intravenou s, ONCE, 1 dose, Sun01/15/19 at 0945, Routine [facility] pregabalin 75 mg capsule 01-09 20:19: 17 Yes 75mg Take 75 mg by mouth 3 (three) times daily. [facility] gabapentin 300 mg capsule 01-09 20:18: 38 01-09 00:00 :00 No 300mg Take 300 mg by mouth every 6 (six) hours. [facility] HYDROcodone -acetaminop hen 10-325 mg tablet 10-04 14:24: 14 Yes 1{tbl} Take 1 tablet by mouth 4 (four) times daily. [facility] albuterol (VENTOLIN HFA) 90 mcg/actuati on inhaler 10-04 14:24: 14 Yes 2{puff} Inhale 2 Puffs every 6 (six) hours as needed for Wheezing or Shortness of Breath. [facility] fluticasone -umeclidin- vilanter (TRELEGY ELLIPTA) 100-62.5-25 mcg DsDv 10-04 14:24: 14 Yes Inhale. [facility] levothyroxi ne 150 mcg tablet 10-04 14:24: 14 Yes 150ug Take 150 mcg by mouth every morning. [facility] SERTraline 50 mg tablet 10-04 14:24: 14 Yes 50mg Take 50 mg by mouth daily. [facility] gabapentin 300 mg capsule 10-04 14:24: 14 Yes 300mg Take 300 mg by mouth every 6 (six) hours. [facility] Immunizations Ordered Immunization Name Filled Immunization Name Date Status Comments Source Influenza High Dose 2019-03-11 00:00:[address] [facility] Influenza High Dose 2019-03-11 00:00:[address] [facility] Influenza High Dose 2019-03-11 00:00:[address] [facility] Influenza High Dose 2019-03-11 00:00:[address] [facility] Influenza High Dose 2019-03-11 00:00:[address] [facility] Influenza High Dose 2019-03-11 00:00:[address] [facility] Influenza High Dose 2019-03-11 00:00:[address] [facility] Influenza High Dose 2019-03-11 00:00:[address] [facility] Influenza High Dose 2019-03-11 00:00:[address] [facility] Influenza High Dose 2019-03-11 00:00:[address] [facility] Influenza High Dose 2019-03-11 00:00:[address] [facility] Influenza High Dose 2019-03-11 00:00:[address] [facility] Influenza High Dose 2019-03-11 00:00:[address] [facility] Influenza High Dose 2019-03-11 00:00:[address] [facility] Pneumococcal Polysaccharide, PPSV23 (PNEUMOVAX) 2019-02-11 00:00:[address] [facility] Pneumococcal Polysaccharide, PPSV23 (PNEUMOVAX) 2019-02-11 00:00:[address] [facility] Pneumococcal Polysaccharide, PPSV23 (PNEUMOVAX) 2019-02-11 00:00:[address] [facility] Pneumococcal Polysaccharide, PPSV23 (PNEUMOVAX) 2019-02-11 00:00:[address] [facility] Pneumococcal Polysaccharide, PPSV23 (PNEUMOVAX) 2019-02-11 00:00:[address] [facility] Pneumococcal Polysaccharide, PPSV23 (PNEUMOVAX) 2019-02-11 00:00:[address] [facility] Pneumococcal Polysaccharide, PPSV23 (PNEUMOVAX) 2019-02-11 00:00:[address] [facility] Pneumococcal Polysaccharide, PPSV23 (PNEUMOVAX) 2019-02-11 00:00:[address] [facility] Pneumococcal Polysaccharide, PPSV23 (PNEUMOVAX) 2019-02-11 00:00:[address] [facility] Pneumococcal Polysaccharide, PPSV23 (PNEUMOVAX) 2019-02-11 00:00:[address] [facility] Pneumococcal Polysaccharide, PPSV23 (PNEUMOVAX) 2019-02-11 00:00:[address] [facility] Pneumococcal Polysaccharide, PPSV23 (PNEUMOVAX) 2019-02-11 00:00:[address] [facility] Pneumococcal Polysaccharide, PPSV23 (PNEUMOVAX) 2019-02-11 00:00:[address] [facility] Pneumococcal Polysaccharide, PPSV23 (PNEUMOVAX) 2019-02-11 00:00:[address] [facility] Pneumococcal Polysaccharide, PPSV23 (PNEUMOVAX) Unknown Completed [facility] Influenza High Dose Unknown Completed [facility] Vital Signs Vital Name Observation Time Observation Value Comments S ource Systolic blood pressure 2020-02-12 18:26:00 146 mm[Hg] [facility] Diastolic blood pressure 2020-02-12 18:26:00 88 mm[Hg] [facility] Heart rate 2020-02-12 18:19:00 97 /min [facility] Body weight 2020-02-12 18:19:[address] [facility] BMI 2020-02-12 18:19:00 32.45 kg/m2 [facility] Body height 2019-06-04 20:39:[address] [facility] Body weight 2019-06-04 20:39:[address] [facility] BMI 2019-06-04 20:39:00 32.45 kg/m2 [facility] Body weight 2019-01-24 18:07:[address] [facility] BMI 2019-01-24 18:07:00 30.26 kg/m2 [facility] Systolic blood pressure 2019-01-29 20:18:00 153 mm[Hg] [facility] Diastolic blood pressure 2019-01-29 20:18:00 74 mm[Hg] [facility] Heart rate 2019-01-29 20:18:00 67 /min [facility] Respiratory rate 2019-01-29 20:18:00 18 /min [facility] Oxygen saturation in Arterial blood by Pulse oximetry 2019-01-29 20:18:00 95 /min [facility] Systolic blood pressure 2019-01-09 20:17:00 123 mm[Hg] [facility] Diastolic blood pressure 2019-01-09 20:17:00 77 mm[Hg] [facility] Heart rate 2019-01-09 20:17:00 95 /min [facility] Respiratory rate 2019-01-09 20:17:00 19 /min [facility] Body height 2019-01-09 20:17:00 172.7 cm [facility] 2019-01-09 20:17:00 90.357 kg [facility] BMI 2019-01-09 20:17:00 30.29 kg/m2 [facility] Oxygen saturation in Arterial blood by Pulse oximetry 2019-01-09 20:17:00 96 /min [facility] Systolic blood pressure 2019-01-15 16:04:00 169 mm[Hg] [facility] Diastolic blood pressure 2019-01-15 16:04:00 76 mm[Hg] [facility] Heart rate 2019-01-15 16:04:00 68 /min [facility] Body height 2019-01-15 16:04:00 172.7 cm [facility] Body weight 2019-01-15 16:04:00 90.266 kg [facility] BMI 2019-01-15 16:04:00 30.26 kg/m2 [facility] Systolic blood pressure 2019-01-09 20:22:00 123 mm[Hg] [facility] Diastolic blood pressure 2019-01-09 20:22:00 77 mm[Hg] [facility] Heart rate 2019-01-09 20:22:00 95 /min [facility] Respiratory rate 2019-01-09 20:22:00 19 /min [facility] Body height 2019-01-09 20:22:00 172.7 cm [facility] Body weight 2019-01-09 20:22:[address] [facility] BMI 2019-01-09 20:22:00 30.29 kg/m2 [facility] Oxygen saturation in Arterial blood by Pulse oximetry 2019-01-09 20:22:00 96 /min [facility] Systolic blood pressure 2019-01-02 18:56:00 141 mm[Hg] [facility] Diastolic blood pressure 2019-01-02 18:56:00 82 mm[Hg] [facility] Heart rate 2019-01-02 18:56:00 80 /min [facility] Body height 2019-01-02 18:56:[address] [facility] Body weight 2019-01-02 18:56:[address] [facility] BMI 2019-01-02 18:56:00 29.95 kg/m2 [facility] Procedures Procedure Date / Time Performed Performing Clinician Source REFERRAL- REQUEST/RESPONSE 2020-02-06 05:01:00 Doctor Unassigned, [place] [facility] BI SCREENING TOMOSYNTHESIS BILATERAL 2019-12-31 16:23:00 Requisition, Paper [facility] ASSIGNMENT OF BENEFITS 2019-11-24 20:39:03 Docto r Unassigned, [place] [facility] HOME HEALTH 485 2019-08-28 05:01:00 Doctor Unass igned, [place] [facility] XR FOOT <3 VW LEFT 2019-06-04 20:47:[address] [facility] URINALYSIS 2019-01-30 21:19:00 Awa Munguia [facility] COMP. METABOLIC PANEL ([id number]) 2019-01-30 20:07:[address] [facility] CBC WITH DIFFERENTIAL 2019-01-30 20:07:[address] [facility] PROTHROMBIN TIME / INR 2019-01-30 20:07:[address] [facility] ACTIVATED PARTIAL THRMPLAS SAEID 2019-01-30 20:07:[address] [facility] XR CHEST 1 VW 2019-01-30 19:42:53 [facility] FOR [facility]AG[facility]IS AND TREATMENT 2019-01-30 19:14:22 Doctor Unassigned, [place] [facility] ASSIGNMENT OF BENEFITS 2019-01-30 19:11:41 Docto r Unassigned, [place] [facility] CT THORAX W CONTRAST 2019-01-15 15:11:[address] [facility] CONSENT/REFUSAL FOR DIAGNOSIS AND TREATMENT 2019-01-15 14:14:30 Doctor Unassigned, [place] [facility] ASSIGNMENT OF BENEFITS 2019-01-15 14:13:58 Docto r Unassigned, [place] [facility] POCT CREATININE 2019-01-15 14:03:00 Tiana Guerrero [facility] EKG-12 LEAD 2019-01-09 20:19:24 Puneet Ontiveros [facility] XR KNEE <3 VW RIGHT 2019-01-02 19:02:[address] [facility] REFERRAL- REQUEST/RESPONSE 2018-12-31 05:01:00 Doctor Unassigned, [place] [facility] Encounters Start Date/Time End Date/Time Encounter Type Admission Type Attending Clinicians Care Facility Care Department Encounter ID Source 2023-09-27 00:00:00 2023-09-27 15:58:46 Letter (Out) [facility] 1..840.114 350.1.13.10 4.2.7.2.686 [id number] [facility] 2023-05-07 15:15:00 2023-05-07 15:15:00 Outpatient AWA JOHNSTON CRAIG [facility] [id number] [facility] 2020-07-20 00:00:00 2020-07-20 00:00:00 Patient Outreach Joo Olivera [facility] 1.2.840.114 350.1.13.10 4.2.7.2.686 [id number] [facility] 2020-02-12 13:30:00 2020-02-12 13:30:00 Outpatient GIORGIO OSUNA [facility] [id number] [facility] 2020-02-12 13:10:51 2020-02-12 13:25:51 Office Visit Giorgio Jamison [facility] 1.840.114 350.1.13.10 4.2.7.2.686 [id number] [facility] 2020-02-10 14:00:00 2020-02-10 14:00:00 Outpatient GIORGIO OSUNA [facility] [id number] [facility] 2020-02-06 00:00:00 2020-02-06 00:00:00 Orders Only Doctor Unassigned, [place] [facility] 1.840.114 350.1.13.10 4.2.7.2.686 [id number] [facility] 2019-12-31 11:00:00 2019-12-31 23:59:00 Hospital Encounter Radiology [facility] 1.840.114 350.1.13.10 4.2.7.2.686 [id number] [facility] 2019-12-31 00:00:00 2019-12-31 00:00:00 Outpatient R RADIOLOGY [facility] [id number] [facility] 2019-12-05 11:00:00 2019-12-05 11:00:00 Outpatient R TIANA GUERRERO SHIWAN [facility] [id number] [facility] 2019-11-24 15:43:15 2019-11-24 15:58:15 Foil Spooler Visit Pob, Adc Lab Main Katya Guan Giovany [facility] Professio [facility] 1.840.114 350.1.13.10 4.2.7.2.686 [id number] [facility] 2019-11-24 15:45:00 2019-11-24 15:45:00 Outpatient GIOVANY MALAVE [facility] [id number] [facility] 2019-11-24 00:00:00 2019-11-24 00:00:00 Orders Only Doctor Unassigned, [place] [facility] 1.2.840.114 350.1.13.10 4.2.7.2.686 [id number] [facility] 2019-09-05 00:00:00 2019-09-05 00:00:00 Refill [facility] Surgical Specialti es [place] 1.2.840.114 350.1.13.10 4.2.7.2.686 [id number] [facility] 2019-08-28 00:00:00 2019-08-28 00:00:00 Orders Only Doctor Unassigned, [place] [facility] 1.2.840.114 350.1.13.10 4.2.7.2.686 [id number] [facility] 2019-08-03 00:00:00 2019-08-03 00:00:00 Refill [facility] Special[facility] es [place] 1.2.840.114 350.1.13.10 4.2.7.2.686 [id number] [facility] 2019-07-02 00:00:00 2019-07-02 00:00:00 Refill [facility] Surgical Special[facility] es [place] 1.2.840.114 350.1.13.10 4.2.7.2.686 [id number] [facility] 2019-06-04 14:47:00 2019-06-04 23:59:00 Hospital Encounter [facility] Surgical Specialti wanda [place] 1.2.840.114 350.1.13.10 4.2.7.2.686 [id number] [facility] 2019-06-04 14:31:47 2019-06-04 15:20:05 Office Visit [facility] Surgical Specialti wanda [place] 1.2.840.114 350.1.13.10 4.2.7.2.686 [id number] [facility] 2019-02-03 00:00:00 2019-02-03 00:00:00 Prep For Surgery Awa Munguia [facility] Surgical Special wanda Ro[place] 1.2.840.114 350.1.13.10 4.2.7.2.686 [id number] [facility] 2019-01-30 09:45:00 2019-01-30 23:59:00 Hospital Encounter Awa [place] 1.2.840.114 350.1.13.10 4.2.7.2.686 [id number] [facility] 2019-01-30 13:06:10 2019-01-30 15:21:10 Ancillary Visit Class, Adc-Tka Pre Op Awa Munguia [facility] Professio nal Building 1.2.840.114 350.1.13.10 4.2.7.2.686 [id number] [facility] 2019-01-30 14:10:31 2019-01-30 14:25:31 Foil Spooler Visit 1, Adc Lab Awa Munguia [facility] 1.2.840.114 350.1.13.10 4.2.7.2.686 [id number] [facility] 2019-01-30 08:45:00 2019-01-30 09:44:00 Hospital Encounter Awa Munguia [facility] 1.2.840.114 350.1.13.10 4.2.7.2.686 [id number] [facility] 2019-01-30 00:00:00 2019-01-30 00:00:00 Telephone Awa Munguia [facility] Surgical Specialti wanda [place] 1.2.840.114 350.1.13.10 4.2.7.2.686 [id number] [facility] 2019-01-29 15:14:09 2019-01-29 15:29:09 Office Visit Awa Munguia [facility] Surgical Specialti wanda [place]jas 1.2.840.114 350.1.13.10 4.2.7.2.686 [id number] [facility] 2019-01-27 00:00:00 2019-01-27 00:00:00 Telephone Awa Munguia [facility] Surgical Special wanda [place] 1.2.840.114 350.1.13.10 4.2.7.2.686 [id number] [facility] 2019-01-23 00:00:00 2019-01-23 00:00:00 Telephone Puneet Ontiveros [facility] Office Building 1.2.840.114 350.1.13.10 4.2.7.2.686 [id number] [facility] 2019-01-09 14:53:48 2019-01-20 21:38:01 Office Visit Puneet Ontiveros [facility] Building 1.2.840.114 350.1.13.10 4.2.7.2.686 [id number] [facility] 2019-01-17 00:00:00 2019-01-17 00:00:00 Telephone Puneet Ontiveros [facility] nal Building 1.2.840.114 350.1.13.10 4.2.7.2.686 [id number] [facility] 2019-01-16 00:00:00 2019-01-16 00:00:00 Telephone Tiana Guerrero [facility] nal Building 1.2.840.114 350.1.13.10 4.2.7.2.686 [id number] [facility] 2019-01-15 08:50:00 2019-01-15 23:59:00 [facility] 1.2.840.114 350.1.13.10 4.2.7.2.686 [id number] [facility] 2019-01-15 10:24:25 2019-01-15 11:35:35 Laboratory Only Tech, Adc Cardio Fac 1, Adc Cardio Fac Room Chary [facility] Building 1.2.840.114 350.1.13.10 4.2.7.2.686 [id number] [facility] 2019-01-09 14:54:09 2019-01-09 16:06:57 Office Visit Chary [facility] 1.2.840.114 350.1.13.10 4.2.7.2.686 [id number] [facility] 2019-01-02 14:02:13 2019-01-02 23:59:00 Hospital Encounter [facility] 1.2.840.114 350.1.13.10 4.2.7.2.686 [id number] [facility] 2019-01-02 13:55:56 2019-01-02 14:10:56 Office Visit [place] [facility] Surgical On License Of [facility]anda [place] 1.2.840.114 350.1.13.10 4.2.7.2.686 [id number] [facility] 2018-12-31 00:00:00 2018-12-31 00:00:00 Orders Only Doctor Unassigned, [place] [facility] 1.2.840.114 350.1.13.10 4.2.7.2.686 [id number] [facility] Results Test Description Test Time Test Comments Results Resul t Comments Source BI SCREENING TOMOSYNTHESIS BILATERAL 2019-12-20 2 18:07:58 Examination:BI SCREENING TOMOSYNTHESIS BILATERAL History:Patient is 69 year old and is seen for: ?Breast cancer screening by mammogram. Computer-aided detection (CAD) utilized. Comparisons : None available Findings:The breasts are almost entirely fatty. BilateralThere are vascular, round and rim calcifications in a diffuse distribution seen in both breasts. There is no evidence of suspicious masses, calcifications, or other abnormal findings. Impression:No definite signs of malignancy. Recommendation:Radha jose mammographic follow-up - Bilateral BI-RADS Category: Both 2 - Benign [facility] XR FOOT <3 VW LEFT 2019-05-21 5 21:11:06 No signs of fracture or dislocation she does have bone spurring at the tarsal metatarsal joint on the dorsal aspect and some degenerative change in the joint [facility][id number][facility]2019-01-30 21:41:00* Test Item Value Reference Range Interpretation Comme nts NA (test code = 1150367898) 143 mmol/L 135-145 K (test code = 9668835999) 4.1 mmol/L 3.5-5 CL (test code = 6145245180) 107 mmol/L 98-108 CO2 TOTAL (test code = 2518657870) 28 mmol/L 23-31 AGAP (test code = 1304614690) 2-16 BUN (test code = 5571127507) 20 mg/dL 7-23 GLUCOSE (test code = 0855538939) 79 mg/dL 70-110 CREATININE (test code = 9548105903) 0.69 mg/dL 0.5-1.04 TOTAL BILI (test code = 8507279505) 0.3 mg/dL 0.1-1.1 CALCIUM (test code = 9518683029) 9.3 mg/dL 8.6-10.6 T PROTEIN (test code = 6561645045) 7.0 g/dL 6.3-8.2 ALBUMIN (test code = 4394516890) 4.3 g/dL 3.5-5 ALK PHOS (test code = 7103196895) 87 U/L 34-122 ALT(SGPT) (test code = 6925813133) 25 U/L 9-51 AST(SGOT) (test code = 9172056630) 35 U/L 13-40 eGFR Calculation (Non-) (test code = 1098460985) mL/min/1.73m2 eGFR Calculation () (test code = 5014544102) mL/min/1.73m2 JENNIFER (test code = JENNIFER) Association of Glomerular Filtration Rate (GFR) and Staging of Kidney Disease*+ ---------+ --------+ +| GFR (mL/min/1.73 m2)?| With Kidney Damage?|?Without Kidney Damage+ -------+ ------+ ---------+|?>90?|?Stage one?|? Normal?+ --------+ -------+ +|?60-89?|?St age two?|? Decreased GFR? + -+ + ---+|?30-59?|?Stage three?|? Stage three? + -+ + ---+|?15-29?|?Stage four? |? Stage four?+ ------+ -----+ --------+|?<15 (or dialysis)?|?Stage five? |? Stage five?+ ------+ -----+ --------+*Each stage assumes the associated GFR level has been in effect for at least three months.?Stages 1 to 5, with or without kidney disease, indicate chronic kidney disease.Notes: Determination of stages one and two (with eGFR >59mL/min/1.73 m2) requires estimation of kidney damage for at least three months as defined by structural or functional abnormalities of the kidney, manifested by either:Pathological abnormalities or Markers of kidney damage (including abnormalities in the composition of the blood or urine or abnormalities in imaging tests). [facility]2019-[facility]-12 20:28:00* Test Item Value Reference Range Interpretation Comme [facility] APTT Patient (test code = 3173-2) See_Comment [Automated message] The system which generated this result transmitted reference range: 23 - 38 Seconds. The reference range was not used to interpret this result as normal/abnormal. JENNIFER (test code = JENNIFER) The [facility] patient population mean normal value for aPTT is 30 seconds. Lab Interpretation (test code = 63322-0) Normal [facility] / [id number] 20:26:00* Test Item Value Reference Range Interpretation Comme [facility] PROTIME PATIENT (test code = 5964-2) See_Comment [Automated [employer] ge] The system which generated this result transmitted reference range: 12.0 - 14.7 Seconds. The reference range was not used to interpret this result as normal/abnormal. INR (test code = 6301-6) Normal INR <1.1; Warfarin Therapeutic range 2.0 to 3.0 or 2.5 to 3.5, depending upon the indications. Lab Interpretation (test code = 00807-9) Normal [facility] WITH [id number] 20:16:00* Test Item Value Reference Range Interpretation Comme nts WBC (test code = 6690-2) See_Comment [Automated [employer] ge] The system which generated this result transmitted reference range: 4.30 - 11.10 10*3/?L. The reference range was not used to interpret this result as normal/abnormal. RBC (test code = 789-8) See_Comment [Automated [employer] ge] The system which generated this result transmitted reference range: 3.93 - 5.25 10*6/?L. The reference range was not used to interpret this result as normal/abnormal. HGB (test code = 718-7) 12.4 g/dL 11.6-15 HCT (test code = 4544-3) 40.0 % 35.7-45.2 MCV (test code = 787-2) 87.7 fL 80.6-95.5 MCH (test code = 785-6) 27.2 pg 25.9-32.8 MCHC (test code = 786-4) 31.0 g/dL 31.6-35.1 L RDW-SD (test code = 09805-7) 47.4 fL 39-49.9 RDW-CV (test code = 788-0) 14.8 % 12-15.5 PLT (test code = 777-3) See_Comment [Automated [employer] ge] The system which generated this result transmitted reference range: 166 - 358 10*3/?L. The reference range was not used to interpret this result as normal/abnormal. MPV (test code = 44204-0) 10.8 fL 9.5-12.9 NRBC/100 WBC (test code = 4732148575) See_Comment [Automated [employer] ssage] The system which generated this result transmitted reference range: 0.0 - 10.0 /100 WBCs. The reference range was not used to interpret this result as normal/abnormal. NRBC x10^3 (test code = 3389532836) <0.01 See_Comment [Automated messa ge] The system which generated this result transmitted reference range: 10*3/?L. The reference range was not used to interpret this result as normal/abnormal. GRAN MAT (NEUT) % (test code = 770-8) 52.4 % IMM GRAN % (test code = 7669018141) 0.10 % LYMPH % (test code = 736-9) 34.4 % MONO % (test code = 5905-5) 8.8 % EOS % (test code = 713-8) 3.5 % BASO % (test code = 706-2) 0.8 % GRAN MAT x10^3(ANC) (test code = 3701869747) 3.75 10*3/uL 1.88-7.09 IMM GRAN x10^3 (test code = 6319441010) <0.03 0-0.06 LYMPH x10^3 (test code = 731-0) 2.47 10*3/uL 1.32-3.29 MONO x10^3 (test code = 742-7) 0.63 10*3/uL 0.33-0.92 EOS x10^3 (test code = 711-2) 0.25 10*3/uL 0.03-0.39 BASO x10^3 (test code = 704-7) 0.06 10*3/uL 0.01-0.07 Lab Interpretation (test code = 27761-3) Abnormal [facility] 1 [id number] 19:50:34HISTORY: Preop. FINDINGS: No prior chest x-rays available for comparison. [facility] appearance of the cardiomediastinal silhouette. Noacute pneumonia, pleural effusion, pulmonary congestion detected. Mildpulmonary fibrosis suspected in the lower lungs. Moderate thoracolumbarscoliosis is noted. CONCLUSIONS: No signs of acute cardiopulmonary disease. [facility], Radiant Results Inft User - 01/30/2019 2:50 PM CDTHISTORY: Preop.FINDINGS: No prior chest x-rays available for comparison. [facility] normal appearance of the cardiomediastinal silhouette. Noacute pneumonia, pleural effusion, pulmonary congestion detected. Mildpulmonary fibrosis suspected in the lowerlungs. Moderate thoracolumbarscoliosis is noted.CONCLUSIONS: No signs of acute cardiopulmonary disease.[facility] 2019-01-15 22:16:00* Test Item Value Reference Range Interpretation Comme [facility] POCT Creatinine (test code = 3318206902) 0.7 mg/dL 0.5-1.1 Lab Interpretation (test cod e = 55964-4) Normal [facility] THORAX W [id number] 15:20:34 HISTORY: Chronic dyspnea TECHNIQUE: Contrast-enhanced 64-mutidetector CT scan of the chest wascompleted with intravenous injection of?Omnipaque-350 non ionic contrastmedium. Subsequently numerous sagittal, coronal and MIP reformations weregenerated. FINDINGS: Small portions of the thyroid gland visualized in this studyshowed no focal lesions. Trachea and central bronchial airways appearnormal. Minimal nonspecific bibasilar pulmonary fibrosis is noted. No acute pulmonary thromboembolism detected. Lungs are free of acuteinfiltrates. No pleural or pericardial effusion, pneumothorax orpneumomediastinum. No aortic aneurysm or dissection. No enlarged lymphnodes in the hilum or mediastinum. Possible single 4 mm nodule noted in the right anterior basal lung on image#64/series #2. Short sliding hiatal hernia, moderate thoracic dextroscoliosis with mildgeneralized degenerative spondylosis noted without any compression fracturedeformity or any aggressive bone lesions moderate degenerative disc diseaseat T12-L1 and L1-L2 level noted, more affecting the right side due tocompensatory levoscoliosis of upper lumbar spines. CONCLUSIONS:1. Minimal bibasilar nonspecific pulmonary fibrosis. No lung mass. Nopleural or pericardial effusion.2. Short sliding hiatal hernia.3. S/P cholecystectomy. Biliary ducts are diffusely dilated. Common hepaticduct is dilated up to 26 to 28 mm and common bile duct in the head of thepancreas is dilated up to 14 to 15 mm. If patient's LFT results areabnormal, MRI/MRCP study may be of value. Etiology of dilated biliary ductscould be combination of patient's age, cholecystectomy as well as possiblyampullary stenosis. [facility], Radiant Results Inft User - 01/15/2019 10:22 AM CDTHISTORY: Chronic dyspneaTECHNIQUE: Contrast-enhanced 64-mutidetector CT scan of the chest wascompleted with intravenous injection of Omnipaque-350 non ionic contrastmedium. Subsequently numerous sagittal, coronal and MIP reformations weregenerated.FINDINGS: Small portions of the thyroid gland visualized in this studyshowed no focal lesions. Trachea and central bronchial airways appearnor mal. Minimal nonspecific bibasilar pulmonary fibrosis is noted.No acute pulmonary thromboembolism detected. Lungs are free of acuteinfiltrates. No pleural or pericardial effusion, pneumothorax orpneumomediastinum. No aortic aneurysm or dissection. No enlarged lymphnodes in the hilum or mediastinum.P ossible single 4 mm nodule noted in the right anterior basal lung on image#64/series #2.Short sliding hiatal hernia, moderate thoracic dextroscoliosis with mildgeneralized degenerative spondylosis noted without any compression fracturedeformity or any aggressive bone lesions moderate degenerative disc diseaseat T12-L1 and L1-L2 level noted, more affecting the right side due tocompensatory levoscoliosis of upper lumbar spines.CONCLUSIONS:1. Minimal bibasilar nonspecific pulmonary fibrosis. No lung mass. Nopleural or pericardial effusion.2. Short sliding hiatal hernia.3. S/P cholecystectomy. Biliary ducts are diffusely dilated. Common hepaticduct is dilated up to 26 to 28 mm and common bile duct in the head of thepancreas is dilated up to 14 to 15 mm. If patient's LFT results areabnormal, MRI/MRCP study may be of value. Etiology of dilated biliary ductscould be combination of patient's age, cholecystectomy as well as possiblyampullary stenosis.[facility] KNEE <3 VW [id number] 19:12:10Bone on bone osteoarthritis in the medial and lateral joint lines of both knees with valgus deformity lateral view of the right knee reveals [id number] osteoarthritis in the joint line at 30? flexion and of the patellofemoral joint this is tricompartmental disease there are also osteophytes on the posterior femoral condyle and the posterior tibial plateau as well as the superior patellar groove [facility]"
--- NOTE | 2024-01-13 17:54 | RAD REPORT ---
EXAM DESCRIPTION: CT - Head C Spine Cap Wo Con - 01/13/2024 4:49 pm CLINICAL HISTORY: fall COMPARISON: No comparisons TECHNIQUE: Head and cervical spine CT images were obtained without IV contrast. Chest, abdomen, and pelvis CT images were obtained without IV contrast. Multiplanar reformats were generated and reviewed . All CT scans are performed using dose optimization technique as appropriate and may include automated exposure control or mA/KV adjustment according to patient size. FINDINGS: CT HEAD: No intracranial hemorrhage, mass effect, or edema. No evidence of acute territorial infarct. No midli ne shift or abnormal fluid collection. The ventricles are normal in caliber and configuration for age . Basal cisterns are patent. Mastoid aircells and paranasal sinuses are clear. No acute skull fractur e. CT CERVICAL SPINE: Moderate multilevel degenerative changes. . No hyperattenuating canal hematoma. Prevertebral and para spinous soft tissues are unremarkable. CT CHEST: No pneumothorax, pulmonary contusion or pleural fluid collection. No mediastinal hematoma and the aor ta and pulmonary arteries are unremarkable. No chest will mass or abnormal axillary finding. No displ aced rib fracture or other significant bony finding. CT ABDOMEN/ PELVIS: No evidence of traumatic injury to solid abdominal viscera. Small to moderate sliding hiatal hernia. Gallbladder was surgically removed. Prominent caliber of the common bile duct, may relate to reservoi r effect. No bowel injury or significant finding. No free air, free fluid or abnormal fat stranding. No urinary bladder abnormality. No significant bony finding. Degenerative. With levoconvex thoracolumbar scoliosis. IMPRESSION: No acute traumatic findings. Chronic findings as above.
--- NOTE | 2024-01-13 19:49 | RAD REPORT ---
EXAM DESCRIPTION: RAD - Knee Right 3 View - 01/13/2024 5:52 pm CLINICAL HISTORY: fall;Pain COMPARISON: <Comparisons> TECHNIQUE: Right knee, 3 views. FINDINGS: No fracture, dislocation or periosteal reaction. Total knee arthroplasty hardware in [employer] alignment. No joint effusion seen. No joint space narrowing. No soft tissue abnormality. Clinical concerns for internal derangement or occult bony injury could be further assessed with MR im aging. IMPRESSION: No acute osseus abnormality. Total knee arthroplasty hardware in satisfactory alignment.
[2024-01-13 20:04] LABS: Specific Gravity 1.009 (1.005-1.030); Urine Bilirubin NEGATIVE (Negative); Urine Blood Negative (Negative); Urine Clarity Clear (Clear); Urine Color Colorless (Yellow); Urine Glucose NEGATIVE (Negative); Urine Ketones NEGATIVE (Negative); Urine Microscopic Reflex YN NO UMIC; Urine Nitrite NEGATIVE (Negative); Urine Protein NEGATIVE (Negative); Urine Urobilinogen Normal (Normal); Urine pH 7.5 (5.0-7.0)
--- NOTE | 2024-01-13 20:12 | EDPHYS ---
Physician Documentation [facility] Name: Leonela Schofield Age: 73 yrs Sex: Female : 1950 Arrival Date: 01/13/2024 Time: 14:04 Bed 23 Private MD: ED Physician Lizbet Guerra HPI: 01/12 16:30 This 73 yrs old Female presents to ER via Wheelchair with complaints of Fall Injury, cp Head Injury-Adult, Shoulder Pain. 16:30 Details of fall: The patient fell from an upright position, while walking. Onset: The cp symptoms/episode began/occurred just prior to arrival. 16:30 Associated injuries: The patient sustained injury to the head, pain to right side of cp head, neck injury, tenderness, injury to the chest, specifically the right lateral posterior chest and right lateral anterior chest, pain with movement, tenderness, right shoulder pain, painful injury. 16:30 Severity of symptoms: in the emergency department the symptoms are unchanged, despite cp home interventions. Historical: - Allergies: 14:24 Tigan; aa5 - PMHx: 14:24 Chronic pain; Hypothyroidism; Rheumatoid Arthritis; Hypertensive disorder; Asthma; aa5 - Immunization history:: Adult Immunizations unknown. - Infectious Disease History:: Denies. - Social history:: Smoking status: Patient denies any tobacco usage or history of. ROS: 16:35 Constitutional: Negative for body aches, chills, fever, poor PO intake, cp 16:35 ENT: Negative for drainage from ear(s), ear pain, sore throat, difficulty swallowing, cp difficulty handling secretions, 16:35 Neck: Positive for tenderness, 16:35 Cardiovascular: Positive for chest pain, of the right lateral chest wall, Negative for edema, palpitations, 16:35 Respiratory: Negative for cough, shortness of breath, wheezing, 16:35 Abdomen/GI: Negative for vomiting, diarrhea, constipation, 16:35 Neuro: Positive for headache, Negative for altered mental status, weakness, 16:35 All other systems are negative, Exam: 16:40 Constitutional: The patient appears in no acute distress, alert, awake, cp non-diaphoretic, non-toxic, well developed, well nourished, uncomfortable, 16:40 Head/face: Noted is tenderness, of the right lateral scalp, cp 16:40 Eyes: Periorbital structures: appear normal, Pupils: equal, round, and reactive to light and accomodation, Extraocular movements: intact throughout, Conjunctiva: normal, no exudate, no injection, Sclera: no appreciated abnormality, Lids and lashes: appear normal, bilaterally, 16:40 ENT: External ear(s): are unremarkable, Nose: is normal, Mouth: Lips: moist, Oral mucosa: pink and intact, moist, Posterior pharynx: Airway: no evidence of obstruction, patent, 16:40 Neck: C-spine: vertebral tenderness, that is mild, appreciated at C6 and C7, crepitus, is not appreciated, ROM/movement: pain, that is mild, with any movement, limited range of motion, is not appreciated, nuchal rigidity, is not appreciated, 16:40 Chest/axilla: Inspection: normal, Palpation: crepitus, is not appreciated, tenderness, that is moderate, of the right lateral posterior chest and right lateral anterior chest, 16:40 Cardiovascular: Rate: normal, Rhythm: regular, Edema: is not appreciated, JVD: is not appreciated, 16:40 Respiratory: the patient does not display signs of respiratory distress, Respirations: normal, no use of accessory muscles, no retractions, labored breathing, is not present, Breath sounds: are clear throughout, no decreased breath sounds, no stridor, no wheezing, 16:40 Abdomen/GI: Inspection: abdomen appears normal, Palpation: abdomen is soft and non-tender, in all quadrants, 16:40 Back: vertebral tenderness, is not appreciated, 16:40 Musculoskeletal/extremity: Extremities: noted in the right shoulder: pain, There is no evidence of decreased ROM, deformity, noted in the right knee: pain, tenderness, no evidence of decreased ROM, deformity, Pulses: noted to be 2+ in the right radial artery and right dorsalis pedis artery, the right hand, right arm and right leg Sensation intact. 16:40 Neuro: Orientation: to person, place \T\ time. Mentation: is normal, Motor: moves all fours, strength is normal, Sensation: is normal, Vital Signs: 14:21 BP 153 / 63; Pulse 85; Resp 18 S; Temp 97.9(O); Pulse Ox 96% on R/A; Weight 78.93 kg aa5 (R); Height 5 ft. 6 in. (R); 20:30 BP 148 / 60; Pulse 80; Resp 18; Pulse Ox 97% ; vc1 14:21 Body Mass Index 28.08 (78.93 kg, 167.64 cm) aa5 MDM: 14:51 Patient medically screened. 17:00 Differential diagnosis: closed head injury, contusion, fracture, laceration, multiple cp trauma. 19:51 Refusal of service: The patient/guardian displays adequate decision making capability and despite a detailed discussion of alternatives, benefits, risks, and consequences refuses: blood work. 20:11 Data reviewed: vital signs, nurses notes, radiologic studies, CT scan, plain films, and cp as a result, I will discharge patient. 20:11 I considered the following discharge prescriptions or medication management in the emergency department Medications were administered in the Emergency Department. See MAR. ED course: discussed results of radiology studies negative for acute fracture. Pain improved with med, will discharge to home for continued monitoring. Patient declined any labs at this time. 01/12 19:51 Order name: Urinalysis w/ reflexes; Complete Time: 20:11 01/12 20:11 Interpretation: Reviewed. 01/12 16:24 Order name: CT Traumagram (Head C Spine CAP wo con); Complete Time: 19:24 01/12 19:25 Interpretation: Report reviewed. 01/12 16:24 Order name: XRAY Knee RIGHT 3 view; Complete Time: 20:11 01/12 16:24 Order name: Labs collected and sent cp Administered Medications: 20:21 CANCELLED (Physician Discretion): fentanyl (pf)25 mcg IVP once cp 20:21 CANCELLED (Physician Discretion): fentanyl (pf)25 mcg IVP once cp 20:39 Drug: fentaNYL (PF) IM 50 mcg IM once Route: IM; Site: right ventrogluteal; vc1 20:39 Follow up: Response: Medication Administered at Departure; Medication administered at vc1 discharge. Disposition Summary: 01/13/24 20:12 Discharge Ordered Notes: Location: Home cp Problem: new cp Symptoms: have improved cp Condition: Stable cp Diagnosis - Pain in left shoulder cp - Unspecified injury of head, initial encounter cp - Chest pain, unspecified - right lateral chest wall cp - Pain in right knee cp - Fall on same level, unspecified cp Followup: cp - With: Private Physician - When: 2 - 3 days - Reason: Recheck today's complaints Discharge Instructions: - Discharge Summary Sheet cp - Nonspecific Chest Pain, Adult cp - Shoulder Pain cp - Acute Knee Pain, Adult cp Forms: - Medication Reconciliation Form cp - Antibiotic Education cp - Prescription Opioid Use cp - Patient Portal Instructions cp - Leadership Thank You Letter cp Prescriptions: - Mobic 7.5 mg Oral Tablet - take 1 tablet ORAL route once daily take with food; 20 tablet; Refills: 0, cp Product Selection Permitted - methocarbamol 750 mg Oral tablet - take 1 tablet ORAL route every 8 hours; 30 tablet; Refills: 0, Product cp Selection Permitted Signatures: Dispatcher [employer] EDRolanda Peoples RN RN aa5 Chaim Yung PA PA cp Calcote, Vanessa, RN RN vc1 Corrections: (The following items were deleted from the chart) 16:24 16:24 Head C Spine Cap Wo Con+CT.RAD.BRZ ordered. EDMS EDMS 16:24 16:24 Knee Right 3 View+RAD.RAD.BRZ ordered. EDMS EDMS 16:24 16:24 BASIC METABOLIC PANEL+C.LAB.BRZ ordered. EDMS EDMS 16:24 16:24 CBC+H.LAB.BRZ ordered. EDMS EDMS 16:24 16:24 TYPE AND SCREEN+BB.LAB.BRZ ordered. EDMS EDMS 20:21 16:24 fentaNYL (PF) IVP 25 mcg IVP once ordered. cp cp 20:21 19:25 fentaNYL (PF) IVP 25 mcg IVP once ordered. cp cp 20:39 19:25 Sling ordered. cp vc1 01/13 20:14 01/12 16:30 Associated injuries: The patient sustained injury to the head, pain to cp right side of head, neck injury, tenderness, injury to the chest, specifically the right lateral posterior chest and right lateral anterior chest, pain with movement, tenderness, cp
--- NOTE | 2024-01-13 20:12 | ER ---
Nurse's Notes [facility] Name: Leonela Schofield Age: 73 yrs Sex: Female : 1950 Arrival Date: 01/13/2024 Time: 14:04 Bed 23 Private MD: Diagnosis: Pain in left shoulder;Unspecified injury of head, initial encounter;Chest pain, unspecified-right lateral chest wall;Pain in right knee;Fall on same level, unspecified Presentation: 01/12 14:21 Chief complaint: Patient states: tripped on rug and fell onto right side of body. Pt aa5 c/o right shoulder pain and pain to right side of head. 14:21 Coronavirus screen: At this time, the client does not indicate any symptoms associated aa5 with coronavirus-19. Ebola Screen: Patient denies travel to an Ebola-affected area in the 21 days before illness onset. Initial Sepsis Screen: Does the patient meet any 2 criteria? No. Patient's initial sepsis screen is negative. Does the patient have a suspected source of infection? No. Patient's initial sepsis screen is negative. Risk Assessment: Do you want to hurt yourself or someone else? Patient reports no desire to harm self or others. Onset of symptoms was January 13, 2024. 14:21 Acuity: MANUEL 4 aa5 14:21 Method Of Arrival: Wheelchair aa5 Triage Assessment: 20:00 General: Appears in no apparent distress. comfortable, slender, well groomed, well vc1 developed, well nourished, Behavior is calm, cooperative, appropriate for age. Pain: Complains of pain in face Pain does not radiate. EENT: No deficits noted. No signs and/or symptoms were reported regarding the EENT system. Neuro: Level of Consciousness is awake, alert, obeys commands, Oriented to person, place, time, situation, Appropriate for age. Cardiovascular: No deficits noted. Respiratory: Airway is patent Respiratory effort is even, unlabored, Respiratory pattern is regular, symmetrical, Breath sounds are clear bilaterally. GI: No deficits noted. No signs and/or symptoms were reported involving the gastrointestinal system. : No deficits noted. No signs and/or symptoms were reported regarding the genitourinary system. Derm: Skin is intact, is healthy with good turgor, Skin is dry, Skin is normal, Skin temperature is warm. Musculoskeletal: No deficits noted. No signs and/or symptoms reported regarding the musculoskeletal system. Historical: - Allergies: 14:24 Tigan; aa5 - PMHx: 14:24 Chronic pain; Hypothyroidism; Rheumatoid Arthritis; Hypertensive disorder; Asthma; aa5 - Immunization history:: Adult Immunizations unknown. - Infectious Disease History:: Denies. - Social history:: Smoking status: Patient denies any tobacco usage or history of. Screenin:30 [facility] ED Fall Risk Assessment (Adult) History of falling in the last 3 months, vc1 including since admission No falls in past 3 months (0 pts) Confusion or Disorientation No (0 pts) Intoxicated or Sedated No (0 pts) Impaired Gait No (0 pts) Mobility Assist Device Used No (0 pt) Altered Elimination No (0 pt) Score/Fall Risk Level 0 - 2 = Low Risk Oriented to surroundings, Maintained a safe environment, Educated pt \T\ family on fall prevention, incl call for assistance when getting out of bed. 20:39 [facility] ED Fall Risk Assessment (Adult). Abuse screen: Denies threats or abuse. vc1 Nutritional screening: No deficits noted. Tuberculosis screening: No symptoms or risk factors identified. Assessment: 20:30 Reassessment: Patient and/or family updated on plan of care and expected duration. Pain vc1 level reassessed. Patient is alert, oriented x 3, equal unlabored respirations, skin warm/dry/pink. Patient states feeling better. Patient states symptoms have improved. Vital Signs: 14:21 BP 153 / 63; Pulse 85; Resp 18 S; Temp 97.9(O); Pulse Ox 96% on R/A; Weight 78.93 kg aa5 (R); Height 5 ft. 6 in. (R); 20:30 BP 148 / 60; Pulse 80; Resp 18; Pulse Ox 97% ; vc1 14:21 Body Mass Index 28.08 (78.93 kg, 167.64 cm) aa5 ED Course: 14:06 Patient arrived in ED. mr 14:21 Arm band placed on. aa5 14:24 Triage completed. aa 14:45 Chaim Yung PA is PHCP. cp 14:45 Lizbet Guerra MD is Attending Physician. cp 16:50 CT Traumagram (Head C Spine CAP wo con) In Process Unspecified. EDMS 17:54 XRAY Knee RIGHT 3 view In Process Unspecified. EDMS 19:26 Destiney Fernández, RN is Primary Nurse. vc1 20:30 Patient has correct armband on for positive identification. Placed in gown. Bed in low vc1 position. Pulse ox on. NIBP on. 20:30 No provider procedures requiring assistance completed. vc1 20:30 Patient did not have IV access during this emergency room visit. vc1 Administered Medications: 20:21 CANCELLED (Physician Discretion): fentanyl (pf)25 mcg IVP once cp 20:21 CANCELLED (Physician Discretion): fentanyl (pf)25 mcg IVP once cp 20:39 Drug: fentaNYL (PF) IM 50 mcg IM once Route: IM; Site: right ventrogluteal; vc1 20:39 Follow up: Response: Medication Administered at Departure; Medication administered at vc1 discharge. Medication: 20:30 VIS not applicable for this client. vc1 Outcome: 20:12 Discharge ordered by MD. cp 20:39 Discharged to home ambulatory, with family, vc1 20:39 Condition: good 20:39 Discharge instructions given to patient, Instructed on discharge instructions, follow up and referral plans. medication usage, Demonstrated understanding of instructions, follow-up care, medications, Prescriptions given X 2, 20:40 Patient left the ED. vc1 Signatures: Dispatcher [employer] EDDE Gisele Beck, Gurpreet verduzco FabRolanda, RN RN aa5 Chaim Yung PA PA cp Destiney Fernández, RN RN vc1
[2024-01-13] MEDS ORDERED: FENTANYL CITR 100 MCG/2 ML ONE (20:27)
[2024-01-13 20:56] VITALS: BP 153/63; TEMP 97.9; O2SAT 96
== END 2024-01-13 20:40 | disposition home or self-care (01) ==
LOC: ER 14:04
DX: M25.512 Pain in left shoulder (principal); S09.90XA Unspecified injury of head, initial encounter; R07.89 Other chest pain; M25.561 Pain in right knee; W18.30XA Fall on same level, unspecified, initial encounter
CPT/HCPCS: 81003; 70450; 71250; 72125; 73562; 96372; 99284; J3010

== ENCOUNTER 2025-03-20 10:23 | Emergency (ER) | payer OTHER ==
[2025-03-20] MEDS ORDERED: NA CHLORIDE 0.9% 500 ML ONE (11:03)
[2025-03-20 11:17] LABS: Absolute Lymphocytes (CBC) 1.8 K/uL (0.7-4.9); Hematocrit 37.7 % (36.0-45.0); Hemoglobin 12.3 g/dL (12.0-15.0); MCH 28.2 pg (27.0-35.0); MCHC 32.7 g/dL (32.0-36.0); MCV 86.3 fL (80-100); MPV 8.5 fL (7.6-11.3); Nucleated RBC Absolute Count 0.0 (0-0); Nucleated Red Blood Cells % 0.0 % (0-0); RBC Red Blood Cell Count 4.37 M/uL (3.86-4.86); White Blood Count 6.90 thou/uL (4.3-10.9)
[2025-03-20 11:35] LABS: Anion Gap 8.6 mEq/L (5.0-15.0); BUN Blood Urea Nitrogen 25.0 mg/dL (7-18); Glucose Level 89.0 mg/dL (74-106); Magnesium 2.0 mg/dL (1.6-2.4)
[2025-03-20 11:36] LABS: Potassium 2.7 mEq/L (3.5-5.1)
[2025-03-20] MEDS ORDERED: POTASSIUM CL SA 10 MEQ TAB PO ONE (11:53)
[2025-03-20] MEDS ORDERED: NS KCL 20MEQ 1,000 ML IV ONE (11:56)
--- NOTE | 2025-03-20 13:40 | ER ---
Nurse's Notes [facility] Name: Leonela Schofield Age: 74 yrs Sex: Female : 1950 Arrival Date: 03/20/2025 Time: 10:23 Bed 2 Private MD: Diagnosis: Hypokalemia Presentation: 03/20 10:36 Chief complaint: Patient states: Fatigue, weak, legs/back achy. Told Potassium 2.[address] Quintero office, told to come to ED. Coronavirus screen: Client denies travel out of the [place] in the last 14 days. At this time, the client does not indicate any symptoms associated with coronavirus-19. Ebola Screen: Patient denies travel to an Ebola-affected area in the 21 days before illness onset. Initial Sepsis Screen: Does the patient meet any 2 criteria? No. Patient's initial sepsis screen is negative. Does the patient have a suspected source of infection? No. Patient's initial sepsis screen is negative. Risk Assessment: Do you want to hurt yourself or someone else? Patient reports no desire to harm self or others. Onset of symptoms was March 18, 2025. 10:36 Method Of Arrival: Ambulatory ll1 10:36 Acuity: MANUEL 2 ll1 Historical: - Allergies: 10:37 Trimethobenzamide; ll1 15:18 Tigan; kb4 - PMHx: 10:37 Asthma; Chronic pain; Hypertensive disorder; Hypothyroidism; Rheumatoid Arthritis; ll1 hypokalemia; - Immunization history:: Adult Immunizations up to date. - Infectious Disease History:: Denies. - Social history:: Smoking status: Patient denies any tobacco usage or history of. - Family history:: not pertinent. - Hospitalizations: : No recent hospitalization is reported. Screenin:37 [facility] ED Fall Risk Assessment (Adult) History of falling in the last 3 months, kb4 including since admission No falls in past 3 months (0 pts) Confusion or Disorientation No (0 pts) Intoxicated or Sedated No (0 pts) Impaired Gait No (0 pts) Mobility Assist Device Used No (0 pt) Altered Elimination No (0 pt) Score/Fall Risk Level 0 - 2 = Low Risk. Abuse screen: Denies threats or abuse. Denies injuries from another. Nutritional screening: No deficits noted. Tuberculosis screening: No symptoms or risk factors identified. Assessment: 11:23 General: Appears in no apparent distress. comfortable, Behavior is calm, cooperative. kb4 Pain: Denies pain. Neuro: Level of Consciousness is awake, alert, obeys commands, Oriented to person, place, time, situation. Cardiovascular: Patient's skin is warm and dry. Respiratory: Airway is patent Respiratory effort is even, unlabored, Respiratory pattern is regular, symmetrical. Derm: Skin is pink, warm \T\ dry. 12:32 Reassessment: Patient and/or family updated on plan of care and expected duration. Pain kb4 level reassessed. Patient is alert, oriented x 3, equal unlabored respirations, skin warm/dry/pink. 13:18 Reassessment: Patient and/or family updated on plan of care and expected duration. Pain kb4 level reassessed. Patient is alert, oriented x 3, equal unlabored respirations, skin warm/dry/pink. 14:22 Reassessment: Patient and/or family updated on plan of care and expected duration. Pain kb4 level reassessed. Patient is alert, oriented x 3, equal unlabored respirations, skin warm/dry/pink. waiting for KCL in NS to [place] prior to CC. 15:17 Reassessment: Patient and/or family updated on plan of care and expected duration. Pain kb4 level reassessed. Patient is alert, oriented x 3, equal unlabored respirations, skin warm/dry/pink. Patient denies pain at this time. Patient states feeling better. Vital Signs: 10:36 BP 132 / 71; Pulse 71; Resp 16; Temp 97.5; Pulse Ox 97% ; Weight 74.84 kg; Height 5 ft. ll1 6 in. ; Pain 8/10; 12:36 BP 152 / 79; Pulse 69; Resp 16; Pulse Ox 100% on R/A; kb4 13:18 BP 142 / 69; Pulse 65; Resp 16; Pulse Ox 99% on R/A; kb4 14:23 BP 116 / 54; Pulse 78; Resp 16; Pulse Ox 100% on R/A; kb4 15:17 BP 107 / 80; Pulse 72; Resp 16; Pulse Ox 100% on R/A; kb4 10:36 Body Mass Index 26.63 (74.84 kg, 167.64 cm) ll1 10:36 Pain Scale: Adult ll1 ED Course: 10:28 Patient arrived in ED. al6 10:29 Clark Arita MD is Attending Physician. rn 10:36 Arm band placed on. ll1 10:37 Triage completed. ll1 10:55 Conchis Howard, RN is Primary Nurse. kb4 11:12 Magnesium Sent. bc6 11:12 Basic Metabolic Panel Sent. bc6 11:12 CBC with Diff Sent. bc6 11:13 Initial lab(s) drawn, by de, sent to lab. Inserted saline lock: 22 gauge in left bc6 antecubital area, using aseptic technique. Blood collected. Flushed with 10 mL NS. 12:37 Patient has correct armband on for positive identification. kb4 15:18 No provider procedures requiring assistance completed. kb4 15:32 Provided Education on: d/c. kb4 15:32 IV discontinued, intact, bleeding controlled, No redness/swelling at site. Pressure kb4 dressing applied. Administered Medications: 11:23 Drug: NS 0.9% IV 500 ml 500 ml IV at 1 bolus once; to be given as a bolus over 30 kb4 minutes Volume: 500 ml; Route: IV; Rate: 1 bolus; Site: left antecubital; 13:21 Follow up: Response: No adverse reaction; IV Status: Completed infusion kb4 12:00 Drug: Potassium Chloride IV 20 mEq IV at calculated rate once; administer over 1-2 kb4 hours Route: IV; Rate: calculated rate; Site: left antecubital; 13:21 Follow up: Response: No adverse reaction kb4 12:00 Drug: Potassium Chloride PO 40 mEq PO once Route: PO; kb4 13:20 Follow up: Response: No adverse reaction kb4 Medication: 12:38 VIS not applicable for this client. kb4 Outcome: 13:40 Discharge ordered by . rn 15:31 Discharged to home ambulatory, kb4 15:31 Condition: good 15:31 Discharge instructions given to patient, Instructed on discharge instructions, follow up and referral plans. Demonstrated understanding of instructions, follow-up care, 15:32 Patient left the ED. kb4 Signatures: Clark Arita MD MD rn Lewis, Lynsay, RN RN 1 Zahraa Hammond 6 Leonora Florez al Conchis Howard RN RN kb4 Corrections: (The following items were deleted from the chart) 15:18 10:37 Allergies: Tigan; ll1 kb4
--- NOTE | 2025-03-20 13:41 | EDPHYS ---
Physician Documentation [facility] Name: Leonela Schofield Age: 74 yrs Sex: Female : 1950 Arrival Date: 03/20/2025 Time: 10:23 Bed 2 Private MD: ED Physician Clark Arita HPI: 03/20 10:42 This 74 yrs old Female presents to ER via Ambulatory with complaints of Abnormal application internship Results. 10:42 Patient reports sent here by her PCP for hypokalemia. Patient has had multiple visits rn for low potassium in the past. States feels better after IV potassium. Reports generalized weakness and malaise as well as cramping and pain. No fever or chills. No blood in stool. Has had diarrhea intermittently over the last 3 weeks and feels a little dehydrated as well.. Historical: - Allergies: 10:37 Trimethobenzamide; ll1 15:18 Tigan; kb4 - PMHx: 10:37 Asthma; Chronic pain; Hypertensive disorder; Hypothyroidism; Rheumatoid Arthritis; ll1 hypokalemia; - Immunization history:: Adult Immunizations up to date. - Infectious Disease History:: Denies. - Social history:: Smoking status: Patient denies any tobacco usage or history of. - Family history:: not pertinent. - Hospitalizations: : No recent hospitalization is reported. ROS: 10:42 Constitutional: Negative for fever, chills, and weight loss, Cardiovascular: Negative rn for chest pain, palpitations, and edema, Respiratory: Negative for shortness of breath, cough, wheezing, and pleuritic chest pain, Abdomen/GI: Negative for abdominal pain, nausea, vomiting, and constipation, Back: Negative for injury and pain, : Negative for injury, bleeding, discharge, and swelling, MS/Extremity: Negative for injury and deformity, Skin: Negative for injury, rash, and discoloration, Neuro: Positive for generalized weakness and malaise Exam: 10:42 Constitutional: This is a well developed, well nourished patient who is awake, alert, rn and in no acute distress. Ambulatory to room without assistance or difficulty Cardiovascular: Regular rate and rhythm. No pulse deficits. Respiratory: No increased work of breathing, no retractions or nasal flaring. Abdomen/GI: Soft, non-tender Neuro: Awake and alert, GCS 15 11:21 ECG was reviewed by the Attending Physician. rn Vital Signs: 10:36 BP 132 / 71; Pulse 71; Resp 16; Temp 97.5; Pulse Ox 97% ; Weight 74.84 kg; Height 5 ft. ll1 6 in. ; Pain 8/10; 12:36 BP 152 / 79; Pulse 69; Resp 16; Pulse Ox 100% on R/A; kb4 13:18 BP 142 / 69; Pulse 65; Resp 16; Pulse Ox 99% on R/A; kb4 14:23 BP 116 / 54; Pulse 78; Resp 16; Pulse Ox 100% on R/A; kb4 15:17 BP 107 / 80; Pulse 72; Resp 16; Pulse Ox 100% on R/A; kb4 10:36 Body Mass Index 26.63 (74.84 kg, 167.64 cm) ll1 10:36 Pain Scale: Adult ll1 MDM: 10:29 Medical Screening Exam initiated rn 13:39 Differential Diagnosis Hypokalemia, hyper bow magnesium [place]. Data reviewed: vital rn signs, nurses notes, lab test result(s), EKG, and as a result, I will discharge patient. Consideration of Admission/Observation Escalation of care including admission/observation considered. Independent interpretation of the following test(s) in the Emergency Department EKG: See my EKG interpretation above. Counseling: I had a detailed discussion with the patient and/or guardian regarding the historical points, exam findings, and any diagnostic results supporting the discharge/admit diagnosis, lab results, the need for outpatient follow up, to return to the emergency department if symptoms worsen or persist or if there are any questions or concerns that arise at home. Response to treatment: the patient's symptoms have mildly improved after treatment, and as a result, I will discharge patient. Special discussion: I discussed with the patient/guardian in detail that at this point there is no indication for admission to the hospital. It is understood, however, that if the symptoms persist or worsen the patient needs to return immediately for re-evaluation. 03/20 10:40 Order name: CBC with Diff; Complete Time: 11:40 rn 03/20 10:40 Order name: Basic Metabolic Panel; Complete Time: 11:40 rn 03/20 10:40 Order name: Magnesium; Complete Time: 11:40 rn 03/20 10:41 Order name: EKG; Complete Time: 10:41 rn 03/20 10:40 Order name: IV Start; Complete Time: 11:12 rn 03/20 10:41 Order name: Cardiac monitoring; Complete Time: : rn 03/20 10:41 Order name: EKG Strip; Complete Time: 11:12 rn EC: Rate is 64 beats/min. Rhythm is regular. QRS [place] is Normal. NV interval is normal. QRS rn interval is normal. QT interval is normal. No Q waves. T waves are Normal. No ST changes noted. Clinical impression: NSR w/ Non-specific ST/T Changes. Interpreted by me. Reviewed by me. Administered Medications: 11:23 Drug: NS 0.9% IV 500 ml 500 ml IV at 1 bolus once; to be given as a bolus over 30 kb4 minutes Volume: 500 ml; Route: IV; Rate: 1 bolus; Site: left antecubital; 13:21 Follow up: Response: No adverse reaction; IV Status: Completed infusion kb4 12:00 Drug: Potassium Chloride IV 20 mEq IV at calculated rate once; administer over 1-2 kb4 hours Route: IV; Rate: calculated rate; Site: left antecubital; 13:21 Follow up: Response: No adverse reaction kb4 12:00 Drug: Potassium Chloride PO 40 mEq PO once Route: PO; kb4 13:20 Follow up: Response: No adverse reaction kb4 Disposition Summary: 03/20/25 13:40 Discharge Ordered Notes: Location: Home rn Problem: new rn Symptoms: have improved rn Condition: Stable rn Diagnosis - Hypokalemia rn Followup: rn - With: Private Physician - When: As needed - Reason: Recheck today's complaints, Re-evaluation by your physician Discharge Instructions: - Discharge Summary Sheet rn - Potassium Content of Foods rn - Hypokalemia rn Forms: - Medication Reconciliation Form rn - Antibiotic learning coach - Prescription Opioid Use rn - Patient Portal Instructions rn - Leadership Thank You Letter rn visiting time excluding procedures: 12:37 Critical care time: Bedside Care: 35 minutes. Total time: 35 minutes rn Signatures: Dispatcher [employer] Clark Hackett MD MD rn Lewis, Lynsay, RN RN ll1 Conchis Howard RN RN kb4 Corrections: (The following items were deleted from the chart) 15:18 10:37 Allergies: Tigan; ll1 kb4
[2025-03-20 15:36] VITALS: TEMP 97.5
[2025-03-20 15:40] VITALS: O2SAT 100
[2025-03-20 15:41] VITALS: BP 107/80
== END 2025-03-20 15:32 | disposition home or self-care (01) ==
LOC: ER 10:23 → SUPCPDRO 10:23 → ER 15:32
DX: E87.6 Hypokalemia (principal); I10 Essential (primary) hypertension
CPT/HCPCS: 96361; 93005; 85025; 80048; 36415; 83735; 96374; 99284; J7040; J3480